=== PATIENT | female | born 1960 | race Caucasian/White ===

== ENCOUNTER 2020-11-17 20:32 | Emergency (ER) | payer OTHER, SELFPAY ==
[2020-11-17] VITALS (9 sets, daily range): BP systolic 139–154; BP diastolic 72–109; PULSE 67–126; RESP 16–17; TEMP 37–37.6; O2SAT 95–99
--- NOTE | ~2020-11-17 | CT_ITS ---
EXAMINATION: CT abdomen pelvis w con DATE: 11/17/2020 22:12 INDICATION: Abdominal pain TECHNIQUE: Computed tomography (CT) of the abdomen and pelvis was performed with 100 mL Omnipaque-350 intravenous contrast. Automated exposure control and iterative reconstruction technique were employe d. The dose-length product was 704.79 mGy-cm. COMPARISON: None FINDINGS: Dependent and discoid atelectasis in the bilateral lower lobes. Heart size is normal. No pericardial or pleural effusion. Very small sliding-type hiatal hernia. Couple subcentimeter low-attenuation hepa tic cysts. Focal adenomyomatosis at the tip of the gallbladder fundus. Spleen, pancreas, bilateral ad renal glands and kidneys are normal. Moderate diverticulosis with wall thickening in the sigmoid colo n with prominent inflammatory stranding surrounding a diverticulum at the distal sigmoid colon consis tent with diverticulitis. There is a second focus of diverticulitis with additional inflammatory stra nding with only minimal associated wall thickening surrounding a diverticulum at the proximal sigmoid colon. Small bowel is normal. The appendix is not visualized. No pericecal inflammatory change to ye ggest acute appendicitis. Bladder, anteverted uterus and bilateral adnexa are unremarkable. Trace warner unt of likely reactive free fluid in the pelvis. No abscess or free intraperineal gas. Small fat-cont aining umbilical hernia. Mild lumbar dextrocurvature with moderate spondylosis. IMPRESSION: 1. Radiographically uncomplicated sigmoid diverticulitis at 2 locations, with more mild inflammatory change at the proximal sigmoid colon and 4 severe inflammatory change at the distal sigmoid colon. Reviewed, dictated and finalized at location A. IMPRESSION: 1. Radiographically uncomplicated sigmoid diverticulitis at 2 locations, with m ore mild inflammatory change at the proximal sigmoid colon and 4 severe inflamm atory change at the distal sigmoid colon.
--- NOTE | 2020-11-17 21:02 | ED.ABDPAIN ---
HPI - Abdominal Pain General Chief Complaint: Abdominal Pain Stated Complaint: fever and abdmonial pain Time Seen by Provider: 11/17/20 20:56 Source: RN notes reviewed History of Present Illness HPI narrative: Patient presents to emergency department from home for abdominal pain. Patient states that starting 3 days ago she was having fevers up to 101 ?F she states that she been having some constipation and took Dulcolax on Wednesday and is had numerous episodes of diarrhea since then with abdominal pain diffusely throughout her abdomen abdominal pain is described as cramping she denies any nausea or vomiting she denies any chest pain shortness of breath or any other symptoms states she last took ibuprofen 3 hours ago Related Data Allergies Allergy/AdvReac Type Severity Reaction Status Date / Time morphine Allergy Mild Nausea Verified 09/09/20 15:03 bacitracin Allergy Unknown Unknown Verified 09/09/20 15:03 polymyxin B Allergy Unknown unknown Verified 09/09/20 15:03 Review of Systems Review of Systems: Gen.: Denies fevers or chills ENT: Denies congestion Respiratory: Denies shortness of breath or cough CV: Denies chest pain or palpitations GI: See HPI denies burning, urgency, frequency or hematuria Musculoskeletal: Denies back pain or muscle pain Neuro: Denies numbness, tingling, weakness or focal weakness Skin: Denies rash Except as documented, all other systems reviewed and negative [facility] Past Medical History Medical History Family history of colon cancer HLD (hyperlipidemia) HTN (hypertension) IFG (impaired fasting glucose) Social History Social History Social History: Smoking status: Never smoker Second hand tobacco smoke exposure: No Alcohol intake: current Drinks per week: 4 Substance use: never Substance use type: does not use Gender identity (if verbalized by the patient): Female Sexual Orientation (if Verbalized by the Patient): Straight or Heterosexual Exam Narrative: APPEARANCE: No acute distress, nontoxic, resting in bed HEENT: Normocephalic, atraumatic, OMM RESPIRATORY: No respiratory distress, clear to auscultation bilaterally with no rhonchi wheezing or rales CARDIOVASCULAR: Tachycardic and regular s murmur ABDOMINAL: Soft nondistended diffusely tender to palpation no rebound or guarding MUSCULOSKELETAl: Moves all extremities. No clubbing, cyanosis or edema. NEURO: Awake and alert. Following commands, speech normal, no focal deficits SKIN:: Warm, dry. Normal Color PSYCHIATRIC: Normal affect/mood Course Course Emergency Course: Called discussed with Dr. Kruger presentation work-up agrees with plan for discharge request patient start on Cipro and Flagyl Patient states that they are feeling much better at this time. States abdominal pain has improved.. Repeat abdominal exam shows the patient's abdomen to be soft with no surgical M present discussed with patient results of workup and diagnosis. Discussed need for follow-up with primary care physician, reasons to return to the emergency department in proper use of medication. Patient understands and agrees to current treatment plan Vital Signs Vital signs: Vital Signs Temperature 99.7 F H 11/17/20 20:42 Pulse Rate 126 H 11/17/20 20:42 Respiratory Rate 17 11/17/20 20:42 Blood Pressure 154/109 H 11/17/20 20:42 Pulse Oximetry 99 11/17/20 20:42 Temperature 99.7 F H 11/17/20 20:42 Pulse Rate 67 11/17/20 21:31 Respiratory Rate 16 11/17/20 21:31 Blood Pressure 139/101 H 11/17/20 21:31 Pulse Oximetry 95 11/17/20 21:54 MDM - Abdominal Pain Lab Data Result diagrams: 11/17/20 21:04 11/17/20 21:04 Labs: Lab Results 11/17/20 11/17/20 11/17/20 Range/Units 21:03 21:04 21:04 WBC 11.1 H (4.5-10.0) K/mm3 RBC 4.47 (4.2-5.4) M/mm3 Hgb 14.3 (12.0
[2020-11-17 21:14] LABS: Basophils Percent Auto 0.4 % (0.2-1.2); Eosinophils Absolute Auto 0.2 K/mm3 (0-0.3); Eosinophils Percent Auto 1.4 % (0-4.4); Hematocrit 41.5 % (37.0-47.0); Hemoglobin 14.3 g/dL (12.0-15.0); Immature Granulocyte Absolute 0.03 K/mm3 (0.00-0.031); Immature Granulocyte Percent A 0.3 % (0-0.5); Lymphocytes Absolute Auto 1.71 K/mm3 (0.9-3.2); Lymphocytes Percent Auto 15.4 % (18.3-44.2); Mean Corpuscular HGB Conc 34.5 g/dl (32-36); Mean Corpuscular Volume 92.8 fl (80-100); Mean Platelet Volume 9.1 fl (7.4-10.4); Monocytes Absolute Auto 0.8 K/mm3 (0.1-0.6); Monocytes Percent Auto 6.9 % (2.6-8.5); Neutrophils Absolute Auto 8.4 K/mm3 (1.3-6.7); Neutrophils Percent Auto 75.6 % (45.5-73.1); Platelet Count Result 345 k/mm3 (150-375); Red Blood Count 4.47 M/mm3 (4.2-5.4); Red Cell Distribution Width 12.5 % (11.5-14.5); White Blood Count 11.1 K/mm3 (4.5-10.0)
--- NOTE | 2020-11-17 21:16 | PC.NURSE ---
pt c/o abd pain generalized. reports took dulcolax for constipation 2 days ago and c/o pain to abd c palpation. iv started and labs sent. on monitor.
[2020-11-17 21:18] LABS: Add Urine Microscopic? YES; Appearance Urine Clear (Clear); Bilirubin Urine Negative (Negative); Blood Urine 1+ (Negative); Color Urine Yellow (Yellow); Glucose Urine UA Negative (Negative); Ketones Urine Trace mg/dL (Negative); Leukocyte Esterase Ur Negative LEU/UL (Negative); Mucus Urine Rare /lpf; Nitrate Urine Negative (Negative); Protein Urine Negative (Negative); Specific Grav Ur 1.011 (1.001-1.035); Squamous Epithelial Cell Urine Rare /hpf (Few); Urobilinogen Urine Negative mg/dL (<2.0); WBC Urine 0-3 /hpf
[2020-11-17 21:23] LABS: Lactic Acid Reflex 0.7 mmol/L (0.7-2.1)
[2020-11-17] MEDS: SODIUM CHLORIDE 0.9% IV 1,000 ML 999 ML IV CONT (21:23)
[2020-11-17 21:24] LABS: Alanine Aminotransferase 40 U/L (4-35); Albumin Level 4.5 g/dL (3.5-5.1); Alkaline Phosphatase 97 U/L (38-126); Anion Gap 12 mmol/L (8-16); Aspartate Amino Transferase 27 U/L (14-36); Bilirubin,Total 0.8 mg/dL (0.2-1.3); Blood Urea Nitrogen 11 mg/dL (7-17); Calcium 9.4 mg/dL (8.4-10.2); Carbon Dioxide 25 mmol/L (22-30); Chloride 101 mmol/L (98-107); Estimated CRCL calculation 74 ml/min; Estimated Glomerular Filt Rate > 60; Glucose 109 mg/dL (65-110); Lipase 54 U/L (23-300); Potassium 3.8 mmol/L (3.4-5.0); Sodium 138 mmol/L (137-145)
[2020-11-17] MEDS: CIPROFLOXACIN 500 MG TAB PO (23:50)
[2020-11-17] MEDS: metroNIDAZOLE 250 MG TABLET 500 MG PO (23:50)
== END 2020-11-18 00:06 | disposition home or self-care (01) ==
PROVIDERS: Emergency Provider Emergency Medicine; PCP Family Medicine
DX: K57.92 Diverticulitis of intestine, part unspecified, without perforation or abscess without bleeding (principal); E78.5 Hyperlipidemia, unspecified; I10 Essential (primary) hypertension; R73.01 Impaired fasting glucose
CPT/HCPCS: 36415; 74177; 80053; 81001; 81025; 83605; 83690; 85025; 87040; 96365; 99284; A9270; J0131; J7030; Q9967

== ENCOUNTER 2020-12-30 02:33 | Day surgery (SDC) | payer OTHER, SELFPAY ==
[2020-12-16 12:28] VITALS: BMI 32.6
[2020-12-30 06:21] VITALS: BMI 34.4
[2020-12-30] MEDS: LACTATED RINGERS 1,000 ML 150 ML IV CONT (06:35)
--- NOTE | 2020-12-30 07:11 | WPDANESEPPF ---
Anes - Initial Pre Proc Eval Procedure: Operation Date: 12/30/20 07:30 Proposed Procedures p Colonoscopy - Wilson Espitia MD Date/Time: 12/30/20 07:11 Surgeon: Wilson Espitia MD Pre Op Diagnosis: diverticulitis Patient Data Age: 60 Gender: F Height: 1.57 m Weight: 85.5 kg Allergies Allergy/AdvReac Type Severity Reaction Status Date / Time morphine Allergy Mild Nausea Verified 12/30/20 06:19 bacitracin Allergy Unknown Unknown Verified 12/30/20 06:19 Home Medications Medication Instructions Recorded Confirmed Type ibuprofen 600 mg PO Q6H PRN 12/16/20 12/30/20 History melatonin 3 mg PO HS PRN 12/16/20 12/30/20 History Patient hx anesthesia problems: none Family hx anesthesia problems: none Results Review: All pre-operative results and documents have been reviewed as part of the pre-operative evaluation. [facility], LAT[facility] Past Medical History Medical History Family history of colon cancer HLD (hyperlipidemia) HTN (hypertension) IFG (impaired fasting glucose) Social History Social History Social History: Years smoked: 4 Smoking status: Former smoker Tobacco type: cigarettes Second hand tobacco smoke exposure: No Alcohol intake: current Drinks per week: 4 Substance use: never Substance use type: does not use Living arrangements: with family Gender identity (if verbalized by the patient): Female Sexual Orientation (if Verbalized by the Patient): Straight or Heterosexual Spiritual care concerns: No Anes - Eval Final PreProcedure Day of Procedure 12/30/20 07:11 Patient weight: obese Heart: regular rate and rhythm Lungs: clear to auscultation Airway: Mallampati scale Neurological: alert and oriented Last oral intake: >/= 8 hours ASA classification: II Emergent: no Anesthetic plan: proceed Anesthesia type and monitoring: general and standard monitoring Results Review: All pre-operative results and documents have been reviewed as part of the pre-operative evaluation. Informed Consent: The patient's anesthetic plan and its attendant risks and benefits were discussed with the patient/family/POA. Questions were solicited and answers provided to the satisfaction of the patient/family/POA.
--- NOTE | 2020-12-30 07:25 | PM.HPGS ---
History of Present Illness History of Present Illness Consent: Risks, benefits, and alternatives have been discussed and questions answered. Patient agrees to proceed with procedure. Chief complaint: diverticulitis Narrative: April Herrera is a 60 year old female here for screening colonoscopy, mother had colonoscopy and she also had diverticulitis already treated Review of Systems Constitutional: Constitutional: Denies headache(s) and Denies weakness Eyes: Eyes: Denies blurry vision ENT: Reports Normal hearing present, Denies headache(s) and Denies neck pain Cardiovascular: Cardiovascular: Denies chest pain and Denies dyspnea Respiratory: Respiratory: Denies dyspnea Gastrointestinal: Gastrointestinal: Reports no additional gastrointestinal complaints Genitourinary: Genitourinary: Denies dysuria Musculoskeletal: Musculoskeletal: Denies neck pain Integumentary/Breasts: Skin/Breast: Denies dry skin Neurologic: Reports Normal hearing present, Denies headache(s) and Denies weakness Psychiatric: Psychiatric: Denies anxiety Endocrine: Endocrine: Denies change in body appearance Hematologic/Lymphatic: Hematologic/Lymphatic: Denies easy bleeding Allergic/Immunologic: Allergic/Immunologic: Denies urticaria PMF Past Medical History Medical History Family history of colon cancer HLD (hyperlipidemia) HTN (hypertension) IFG (impaired fasting glucose) Social History Social History Social History: Years smoked: 4 Smoking status: Former smoker Tobacco type: cigarettes Second hand tobacco smoke exposure: No Alcohol intake: current Drinks per week: 4 Substance use: never Substance use type: does not use Living arrangements: with family Gender identity (if verbalized by the patient): Female Sexual Orientation (if Verbalized by the Patient): Straight or Heterosexual Spiritual care concerns: No Meds Home Medications and Allergies Home Medications Medication Instructions Recorded Confirmed Type ibuprofen 600 mg PO Q6H PRN 12/16/20 12/30/20 History melatonin 3 mg PO HS PRN 12/16/20 12/30/20 History Allergies Allergy/AdvReac Type Severity Reaction Status Date / Time morphine Allergy Mild Nausea Verified 12/30/20 06:19 bacitracin Allergy Unknown Unknown Verified 12/30/20 06:19 Exam Const: General: comfortable and no acute distress HENMT: General nose exam: Normal nares present Eyes: General: appearance normal, both eyes and all related structures Neck: Neck: no JVD Resp: Auscultation: clear to auscultation bilaterally Cardio: Rate: regular rate Rhythm: regular rhythm GI: Inspection: non-distended GI Palp: Yes Soft to palpation Skin: General skin exam: normal color Neuro: General: gait normal Speech: normal speech Extrem: General: normal to inspection Psych: Mental Status: mental status grossly normal Assessment and Plan Assessment and plan (1) Family history of colon cancer: Code(s): Z80.0 - Family history of malignant neoplasm of digestive organs Status: Acute Assessment and Plan: colonoscopy
[2020-12-30 07:51] VITALS: BP 82/42; PULSE 78; RESP 19; O2SAT 100
[2020-12-30 08:01] VITALS: BP 91/59; PULSE 82; RESP 22; O2SAT 97
[2020-12-30 08:11] VITALS: BP 111/68; PULSE 67; RESP 14; O2SAT 100
== END 2020-12-30 08:28 | disposition home or self-care (01) ==
PROVIDERS: PCP Family Medicine; Visit Provider Internal Medicine Gastroenterology
PROC: 0DJD8ZZ Inspection of Lower Intestinal Tract, Via Natural or Artificial Opening Endoscopic (ICD-10-PCS; CPT 45378; principal; 2020-12-30 07:30)
DX: Z12.11 Encounter for screening for malignant neoplasm of colon (principal); D12.4 Benign neoplasm of descending colon; K57.30 Diverticulosis of large intestine without perforation or abscess without bleeding; K64.8 Other hemorrhoids; I10 Essential (primary) hypertension; E78.5 Hyperlipidemia, unspecified; Z80.0 Family history of malignant neoplasm of digestive organs; Z87.891 Personal history of nicotine dependence; E66.9 Obesity, unspecified; Z68.34 Body mass index [BMI] 34.0-34.9, adult
CPT/HCPCS: 45380; 88305; J2001; J2704; J7120

== ENCOUNTER → 2021-01-31 03:38 | Outpatient (CLI) | payer OTHER, SELFPAY ==
[2021-01-31 18:11] LABS: SARS-CoV-2 RNA PCR Negative
== END ==
PROVIDERS: PCP Family Medicine; Visit Provider Nurse Practitioner Family
DX: R05.9 Cough, unspecified (principal); R51.9 Headache, unspecified; Z20.822 Contact with and (suspected) exposure to COVID-19
CPT/HCPCS: C9803; U0003; U0005

== ENCOUNTER 2022-08-03 12:31 | Emergency (ER) | payer OTHER, SELFPAY ==
--- NOTE | ~2022-08-03 | CT_ITS ---
Non-contrast Head CT History: Headache, visual changes Technique: Axial non-contrast imaging of the brain was performed. Dose reduction technique was used on this scan by utilizing automated exposure control and iterative reconstruction technique. The dose -length product (DLP) was 605.33 mGy-cm. Findings: There is no evidence of intracranial hemorrhage, mass lesion, or acute infarct. Brain par enchyma appears normal. The ventricles and subarachnoid spaces are normal in size. The calvarium ap pears normal. The visualized paranasal sinuses and mastoid air cells are clear. Impression: No significant abnormality seen. Reviewed, dictated and finalized at location . Impression: No significant abnormality seen.
--- NOTE | ~2022-08-03 | XR_ITS ---
EXAMINATION: XR chest 1V portable 08/03/2022 13:12 INDICATION: Hypertension. History of smoking. PROCEDURE: AP portable chest COMPARISON: 03/10/2005 FINDINGS: The lungs are clear. The cardiomediastinal silhouette is within normal limits. There are no pleural effusions. There is no pneumothorax suspected. IMPRESSION: 1: NO ACUTE CARDIOPULMONARY DISEASE. Reviewed, dictated and finalized at location B.
[2022-08-03 12:35] VITALS: BP 150/86; PULSE 78; RESP 16; TEMP 36.5; O2SAT 99
--- NOTE | 2022-08-03 12:41 | ECG_ITS ---
Measurements Intervals [place] Rate: 86 P: 33 [place]: 169 QRS: 45 QRSD: 88 T: 13 QT: 370 QTc: 445 Interpretive Statements SINUS RHYTHM MINIMAL Q WAVES- INFERIOR LEADS BORDERLINE ST-T WAVE ABNORMALITY- ANT/INF LEADS BASELINE ARTIFACT- I, III, AVR, AVL BORDERLINE ECG NO PREVIOUS ECG AVAILABLE FOR COMPARISON Electronically Signed On 08-03-2022 13:39:05 CDT by Julian Garcia D.O.
[2022-08-03 13:00] VITALS: PULSE 92; RESP 23; O2SAT 96
[2022-08-03 13:15] VITALS: PULSE 90; RESP 15; O2SAT 99
--- NOTE | 2022-08-03 13:18 | ED.GENADULT ---
HPI - General Adult General Chief complaint: Dizziness Stated complaint: dizziness, blurry vision, elevated BP Time Seen by Provider: 08/03/22 12:48 History of Present Illness HPI narrative: Patient is a 61-year-old female who presents ER with dizziness. 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 She gets dizziness is associated with nausea that is worse with turning of her head especially to the left side. She reports over the last 2 weeks she has had sinus congestion. She has had chronic tinnitus in her ears with increased recently as well. No fevers or chills or sweats. No chest pain or chest pressure. No focal weakness or numbness to an arm or leg. No slurred speech. Symptoms are better if she sits still. Related Data Home Medications Medication Instructions Recorded Confirmed ibuprofen 600 mg tablet 600 mg PO Q6H PRN Sleep 12/16/20 07/28/22 melatonin 3 mg tablet 3 mg PO HS PRN Headache 12/16/20 07/28/22 Allergies Allergy/AdvReac Type Severity Reaction Status Date / Time morphine Allergy Mild Nausea Verified 07/28/22 07:15 bacitracin Allergy Unknown Unknown Verified 07/28/22 07:15 Review of Systems Review of Systems: All systems reviewed & are unremarkable except as noted in HPI and below Constitutional: Constitutional: Denies chills, Denies fatigue and Denies fever(s) ENT: Reports dizziness, Reports nasal congestion and Denies sore throat Comments: Positive tenderness bilaterally Cardiovascular: Cardiovascular: Denies chest pain and Denies radiating jaw, neck or arm pain Respiratory: Respiratory: Denies cough, Denies dyspnea and Denies wheezing Gastrointestinal: Gastrointestinal: Denies abdominal pain, Reports nausea and Denies vomiting Neurologic: Reports vertigo, Denies headache(s), Denies focal weakness and Denies numbness [facility] Past Medical History Medical History Family history of colon cancer HLD (hyperlipidemia) HTN (hypertension) IFG (impaired fasting glucose) Social History Social History Social History: Years smoked: 4 Smoking status: Former smoker Tobacco type: cigarettes Second hand tobacco smoke exposure: No Alcohol intake: current Drinks per week: 4 Substance use: never Substance use type: does not use Living arrangements: with family Occupation/Education: occupation Gender identity (if verbalized by the patient): Female Sexual Orientation (if Verbalized by the Patient): Straight or Heterosexual Spiritual care concerns: No Exam Narrative: GENERAL: Well-appearing, well-nourished, and in no acute distress. HEAD: Normocephalic, atraumatic. EYES: PERRL and EOMI. mild left gaze nystagmus. ENT: Mucous membranes moist. TMs pearly white and non-bulging without air-fluid levels behind them. NECK: Supple. CHEST: Clear to auscultation. No respiratory distress. HEART: Regular rate and rhythm. Normal peripheral pulses. ABDOMEN: Soft, nontender, nondistended. EXTREMITIES: Normal range of motion. No edema. SKIN: Warm, dry, no rash. NEURO: Alert and oriented x3. Reproducible dizziness with turning head to the left. No upper or lower extremity drift. Normal [id number] testing and finger-nose testing PSYCH: Normal mood and affect. Course Course Emergency Course: Patient still has some mild dizziness when turning her head but reports it is improved with meclizine. She has been ambulating with a steady gait while in the ER. Discussed imaging and lab results. Feels comfortable with discharge. Vital Signs Vital signs: Vital Signs Temperature 97.7 F 08/03/22 12:35 Pulse Rate 78 08/03/22 12:35 Respiratory Rate 16 08/03/22 12:35 Blood Pressure 150/86 H 08/03/22 12:35 Pulse Oximetry 99 08/03/22 12:35 Temperature 97.7 F
[2022-08-03 13:30] VITALS: PULSE 91; RESP 16; O2SAT 99
[2022-08-03 13:33] LABS: Alanine Aminotransferase 77 U/L (6-35); Albumin Level 4.8 g/dL (3.5-5.1); Alkaline Phosphatase 82 U/L (38-126); Anion Gap 14 mmol/L (8-16); Aspartate Amino Transferase 38 U/L (14-36); Bilirubin,Total 0.8 mg/dL (0.2-1.3); Blood Urea Nitrogen 19 mg/dL (7-17); Calcium 9.2 mg/dL (8.4-10.2); Carbon Dioxide 22 mmol/L (22-30); Chloride 101 mmol/L (98-107); Estimated CRCL calculation 89 ml/min; Estimated Glomerular Filt Rate > 60; Glucose 113 mg/dL (65-110); Potassium 4.1 mmol/L (3.4-5.0); Sodium 137 mmol/L (137-145)
[2022-08-03 13:43] LABS: Basophils Absolute Auto 0.1 K/mm3 (0.0-0.1); Basophils Percent Auto 0.6 % (0.2-1.2); Eosinophils Absolute Auto 0.1 K/mm3 (0-0.3); Hematocrit 45.2 % (37.0-47.0); Hemoglobin 15.4 g/dL (12.0-15.0); Immature Granulocyte Absolute 0.03 K/mm3 (0.00-0.031); Immature Granulocyte Percent A 0.3 % (0-0.5); Immature Platelet Fraction Pct 1.6 % (0.9-11.2); Lymphocytes Absolute Auto 2.41 K/mm3 (0.9-3.2); Lymphocytes Percent Auto 27.7 % (18.3-44.2); Mean Corpuscular HGB Conc 34.1 g/dl (32-36); Mean Corpuscular Hemoglobin 32.5 pg (26-34); Mean Corpuscular Volume 95.4 fl (80-100); Mean Platelet Volume 9.4 fl (7.4-10.4); Monocytes Absolute Auto 0.7 K/mm3 (0.1-0.6); Monocytes Percent Auto 7.5 % (2.6-8.5); Neutrophils Absolute Auto 5.5 K/mm3 (1.3-6.7); Neutrophils Percent Auto 62.9 % (45.5-73.1); Platelet Count Result 263 k/mm3 (150-375); Red Blood Count 4.74 M/mm3 (4.2-5.4); Red Cell Distribution Width 12.2 % (11.5-14.5); White Blood Count 8.7 K/mm3 (4.5-10.0)
[2022-08-03 13:45] VITALS: PULSE 84; RESP 25; O2SAT 95
[2022-08-03 13:45] LABS: Glucose Point of Care 112 mg/dl (65-105)
[2022-08-03 13:45] LABS: Troponin I < 0.012 ng/mL (0.000-0.034)
[2022-08-03] MEDS: SODIUM CHLORIDE 0.9% IV 1,000 ML 999 ML IV CONT (14:02)
[2022-08-03] MEDS: ONDANSETRON INJ 4 MG/2 ML VIAL IV PUSH (14:02)
[2022-08-03] MEDS: MECLIZINE HCL 25 MG TABLET PO (14:03)
[2022-08-03 14:04] LABS: INR 0.9; Prothrombin Time 12.6 Seconds (11.1-14.7)
[2022-08-03 14:05] LABS: Partial Thromboplastin Time 25.2 SECONDS (22.3-36.8)
[2022-08-03 15:01] VITALS: BP 146/90; PULSE 77; RESP 25; O2SAT 97
== END 2022-08-03 15:16 | disposition home or self-care (01) ==
PROVIDERS: Emergency Provider Emergency Medicine; PCP Family Medicine
DX: R42 Dizziness and giddiness (principal); I10 Essential (primary) hypertension; E78.5 Hyperlipidemia, unspecified
CPT/HCPCS: 36415; 70450; 71045; 80053; 82948; 84484; 85025; 85055; 85610; 85730; 93005; 96374; 99284; A9270; J2405; J7030

== ENCOUNTER 2022-10-01 09:52 | Outpatient (CLI) | payer OTHER, SELFPAY ==
--- NOTE | 2022-10-05 16:36 | WPDPFTINT ---
PFT Procedure Performed PFT Procedure Performed Spirometry with Pre/Post Bronchodilator Plethysmography (Lung Vol) Diffusing Cap (DLCO) PFT Interpretation DOS: 10/01/2022 REQUESTING: José Luis Kruger MD REASON FOR TESTING: Dyspnea PULMONARY FUNCTION TESTS Results are reliable and reproducible. Spirometry: Pre bronchodilator FEV1 is 1.77 L, 78%, low end of normal. Pre bronchodilator FVC is 2.45 L, 85%, normal. FEV1/FVC is 72%, normal. After bronchodilator there is a huge increase in flows, FEV1 increases to 114% of predicted, 2.59 L, 46% increase. The FVC increases to 3.46 L, 121% increase, a 41% improvement. The ratio is 75%, normal. Lung volumes: Total lung capacity 3.42 L, 72%, below normal consistent with a restrictive pattern. Residual volume is 0.96 L, 50% of predicted, below normal. RV/TLC is 28%, below normal. Diffusion: DLCO is 15.8, 77%, normal. DLCO/VA is 3.74, 83%, normal. Flow volume loop: not reproducible IMPRESSION: Mild restrictive pattern with borderline obstruction, normal diffusion, robust response to bronchodilator. No old studies to compare. Jamaica Guzman MD
== END 2022-10-01 09:53 | disposition home or self-care (01) ==
PROVIDERS: PCP Family Medicine; Visit Provider Family Medicine
DX: R06.00 Dyspnea, unspecified (principal); R94.2 Abnormal results of pulmonary function studies
CPT/HCPCS: 94060; 94726; 94729

== ENCOUNTER → 2023-03-31 15:46 | Outpatient (CLI) | payer OTHER, SELFPAY ==
--- NOTE | ~2023-03-31 | XR_ITS ---
EXAM: XR lumbar spine 2-3V DATE: 03/31/2023 17:09 HISTORY: Low back pain . COMPARISON: None available. FINDINGS: 5 nonrib-bearing lumbar-type vertebral bodies. Pedicles intact. Mild lumbar scoliosis. Tra ce retrolisthesis at L1-2. 3 mm retrolisthesis at L2-3. 4 mm anterolisthesis at L4-5. Multilevel mild disc space narrowing and marginal osteophytosis. Moderate facet sclerosis and hypertrophy in the low er lumbar spine. No fracture or dislocation. IMPRESSION: Multilevel grade 1 listheses. Multilevel mild degenerative disc disease. Moderate lower l umbar facet arthropathy. Reviewed, dictated and finalized at location K. IZER [employer] IMPRESSION: Multilevel grade 1 listheses. Multilevel mild degenerative disc dis ease. Moderate lower lumbar facet arthropathy.
--- NOTE | ~2023-03-31 | XR_ITS ---
EXAMINATION: XR cervical spine 4-5V DATE: 03/31/2023 17:11 INDICATION: Neck pain. TECHNIQUE: 6 views of cervical spine including standing views were obtained. COMPARISON: None. FINDINGS: There is 2 mm anterolisthesis of C4 on C5. There is 4 degrees levocurvature of cervical spi ne. Vertebral body heights are normal. There is moderately decreased disc height from C4-C5 through C 6-C7. There is multilevel uncovertebral joint osteoarthritis, severe on the right at C4-C5 and C5-C6 and severe bilaterally at C6-C7. There is multilevel mild to moderate facet joint osteoarthritis. On the right, there is mild neural foraminal stenosis from C3-C4 through C6-C7. On the left, there is mi ld neural foraminal stenosis at C3-C4 and C4-C5, moderate neural foraminal stenosis at C5-C6, and sev ere neural foraminal stenosis at C6-C7. There is mild central canal stenosis at C4-C5, C5-C6, and C6- C7. No prevertebral soft tissue swelling. IMPRESSION: 1. Moderate cervical spondylosis. Reviewed, dictated and finalized at location A. CANDY
--- NOTE | ~2023-03-31 | XR_ITS ---
EXAM: XR shoulder RT min 2V DATE: 03/31/2023 17:10 HISTORY: M25.511 - Pain in right shoulder . COMPARISON: X-ray left shoulder same date. FINDINGS: Decreased mineralization. No fracture or dislocation. No lytic or blastic lesion. Mild deg enerative change at the AC joint. No erosion or periosteal change. Soft tissues within normal limits. IMPRESSION: Mild AC joint osteoarthritis. Reviewed, dictated and finalized at location K. MECHANIC
--- NOTE | ~2023-03-31 | XR_ITS ---
EXAM: XR hip BI 2V w AP pelvis DATE: 03/31/2023 17:11 HISTORY: Low back pain . COMPARISON: None available. FINDINGS: Normal mineralization. No fracture or dislocation. No lytic or blastic lesion. Lumbar dege nerative disc disease. Mild bilateral hip degenerative change. Mild scattered pelvic enthesopathy. No erosion or periosteal change. Soft tissues within normal limits. IMPRESSION: Mild bilateral hip osteoarthritic arthritis, slightly worse on the left. Reviewed, dictated and finalized at location K. ET OFFICER
--- NOTE | ~2023-03-31 | XR_ITS ---
EXAM: XR shoulder LT min 2V DATE: 03/31/2023 17:10 HISTORY: M25.512 - Pain in left shoulder . COMPARISON: None available. FINDINGS: Decreased mineralization. No fracture or dislocation. No lytic or blastic lesion. Degenera tive changes, mild at the AC joint and moderate at the glenohumeral joint. No erosion or periosteal c hange. Soft tissues within normal limits. IMPRESSION: Moderate glenohumeral and mild AC joint osteoarthritis. Reviewed, dictated and finalized at location K. SURE TESTER
== END ==
PROVIDERS: PCP Physician Assistant; Visit Provider Physician Assistant
DX: M54.2 Cervicalgia (principal); M43.02 Spondylolysis, cervical region; M16.0 Bilateral primary osteoarthritis of hip; M51.36 Other intervertebral disc degeneration, lumbar region; M47.896 Other spondylosis, lumbar region; M19.012 Primary osteoarthritis, left shoulder; M19.011 Primary osteoarthritis, right shoulder
CPT/HCPCS: 72050; 72100; 73030; 73521

== ENCOUNTER 2023-05-12 07:58 | Outpatient (CLI) | payer OTHER, SELFPAY ==
--- NOTE | ~2023-05-12 | MR_ITS ---
MRI of the cervical spine Clinical History: Cervicalgia Technique: Axial T2-weighted and gradient images, and sagittal T1-weighted, T2-weighted, and STIR khoi ges were acquired. Findings: There is no fracture or subluxation of the cervical spine. Vertebral bodies maintain normal height and alignment At C2-C3, there is no disc bulge or herniation. No spinal canal stenosis, cord compression, or neural foraminal narrowing. At C3-C4, there is minimal disc osteophyte convex. There is probable mild bilateral neural foraminal narrowing. No canal stenosis or cord compression. At C4-C5, there is disc osteophyte complex with mild canal stenosis and mild flattening the ventral c ord. There is bilateral neural foraminal narrowing, right worse than left. At C5-C6, there is disc osteophyte complex, with mild canal stenosis but no roscoe cord compression. T here is bilateral neural foraminal narrowing. At C6-C7, there is disc osteophyte complex with mild canal stenosis but no roscoe cord compression. Th ere is left neural foraminal narrowing. Right neural foramen probably better preserved. No abnormal signal seen in the spinal cord. Paravertebral soft tissues are unremarkable.. No bone mar row signal abnormality seen. Impression: Moderate degenerative spondylosis, as above. Reviewed, dictated and finalized at location . CLE RACER Impression: Moderate degenerative spondylosis, as above.
== END 2023-05-12 07:59 | disposition home or self-care (01) ==
PROVIDERS: PCP Family Medicine; Visit Provider Physician Assistant
DX: M43.02 Spondylolysis, cervical region (principal); M54.2 Cervicalgia
CPT/HCPCS: 72141

== ENCOUNTER 2023-05-16 20:16 | Emergency (ER) | payer OTHER, SELFPAY ==
--- NOTE | ~2023-05-16 | XR_ITS ---
Portable chest x-ray Comparison: 08/03/2022 Clinical History: Fever Findings: Minimal haziness left lung base noted. Right lung clear. Cardiomediastinal silhouette is stable. Bones and soft tissues are unremarkable. Impression: Probable mild left basilar atelectasis versus possibly pneumonia. Correlate clinically. Reviewed, dictated and finalized at [facility]. TENDER Impression: Probable mild left basilar atelectasis versus possibly pneumonia. Correlate cli nically.
[2023-05-16 20:24] VITALS: BP 131/93; PULSE 123; RESP 20; TEMP 37.1; O2SAT 92
[2023-05-16 21:16] LABS: Influenza A QL RT-PCR Negative (Negative); Influenza B QL RT-PCR Negative (Negative); RSV RNA, RT-PCR Negative (Negative); SARS-CoV-2 RNA PCR Negative (Negative)
[2023-05-16 22:26] VITALS: BP 122/89; PULSE 90; RESP 24; TEMP 37.1; O2SAT 92
--- NOTE | 2023-05-16 23:22 | ECG_ITS ---
Measurements Intervals [place] Rate: 93 P: 42 [place]: 156 QRS: 63 QRSD: 97 T: 48 QT: 370 QTc: 462 Interpretive Statements SINUS RHYTHM NORMAL ECG COMPARED TO ECG 08/03/2022 13:37:10 NO SIGNIFICANT CHANGES Electronically Signed On 05-17-2023 7:25:38 PRESS SETTER by Francis Plaza M.D.
--- NOTE | 2023-05-16 23:22 | ED.GENADULT ---
HPI - General Adult General Chief complaint: Fever Stated complaint: Fever, 102.1, achy and pains, feels dehydrated Time Seen by Provider: 05/16/23 22:11 History of Present Illness HPI narrative: 62-year-old female presenting with flu-like symptoms for 2 days. Fevers as high as 102.1 feeling feelings of body aches, lightheadedness nausea. No vomiting diarrhea. 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 Related Data Allergies Allergy/AdvReac Type Severity Reaction Status Date / Time morphine Allergy Mild Nausea Verified 05/16/23 20:28 bacitracin Allergy Unknown Unknown Verified 05/16/23 20:28 [facility], [facility] Past Medical History Medical History Family history of colon cancer HLD (hyperlipidemia) HTN (hypertension) IFG (impaired fasting glucose) Vertigo Social History Social History Social History: Caffeine-tea,soda Years smoked: 4 Smoking status: Former smoker Tobacco type: cigarettes Second hand tobacco smoke exposure: No Alcohol intake: current Drinks per week: 4 Substance use: never Substance use type: does not use Lack of Transportation: No Lack of Food: Never True Current Housing: I Have Housing Concerned About Future Housing: No Difficulty Paying Gas/Electric Bills: No Difficulty Paying for Meds: No Currently Unemployed: No Education: High School Diploma/GED Difficulty w/ Childcare or Family Care: No Living arrangements: with family Occupation/Education: occupation Gender identity (if verbalized by the patient): Female Sexual Orientation (if Verbalized by the Patient): Straight or Heterosexual Spiritual care concerns: No Exam Narrative: APPEARANCE: No apparent distress. Head: atraumatic. EYES: EOMI, NOSE: Atraumatic NECK: Trachea midline RESPIRATORY: No increased rate of breathing, scattered expiratory wheezing CARDIOVASCULAR: tachycardic, no peripheral ABDOMINAL: Non-distended MUSCULOSKELETAl: No obvious deformities NEURO: Alert. Moving 4/4 extremities SKIN:: Warm, dry. Normal color PSYCHIATRIC: Normal affect Course Vital Signs Vital signs: Vital Signs Temperature 98.7 F 05/16/23 20:24 Pulse Rate 123 H 05/16/23 20:24 Respiratory Rate 20 05/16/23 20:24 Blood Pressure 131/93 H 05/16/23 20:24 Pulse Oximetry 92 02/25/24 20:24 Oxygen Delivery Room Air 05/16/23 20:24 Temperature 98.7 F 05/16/23 22:26 Pulse Rate 97 05/17/23 01:38 Respiratory Rate 20 05/17/23 01:38 Blood Pressure 123/75 05/17/23 00:19 Pulse Oximetry 100 05/17/23 00:19 Oxygen Delivery Room Air 05/16/23 20:24 Medical Decision Making [facility] Narrative Medical decision making narrative: -Course: 62-year-old female presenting with flu-like symptoms. Viral swabs negative. Chest x-ray normal. Patient given breathing treatment for scattered for wheezing with improvement of symptoms. HP consistent with bronchitis. Patient be discharged with supportive measures. 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 Chest x-ray unremarkable. Viral swabs negative Independent EKG interpretation: Rhythm [sinus], Rate 93], [place] -[normal], [place] -[normal], QRS [narrow], QTC [normal], T waves -[negative for concerning inversions], ST Segments - [Negative for concerning elevations] Final interpretations: [Normal Sinus Rhythm] -Interventions: DuoNeb breathing treatment, dexamethasone, Tylenol, Motrin -Shared decision making / Disposition: discharge -RX Motrin Tylenol Vital Signs Vital Signs: Vital Signs Temperature 98.7 F 05/16/23 20:24 Pulse Rate 123 H 05/16/23 20:24 Respiratory Rate 20 05/16/23 20:24 Blood Pressure 131/93 H 05/16/23
[2023-05-16] MEDS: ALBUTEROL SULFATE NEB 2.5 MG/3 ML INH 10 MG INHALATION (23:40)
[2023-05-16] MEDS: IPRATROPIUM BR 0.02% INH SOLN 0.5 MG/2.5 ML VIAL 1 MG INHALATION ×3 (23:40→23:41)
[2023-05-16 23:41] VITALS: PULSE 89; RESP 17
[2023-05-16 23:50] LABS: Basophils Absolute Auto 0.1 K/mm3 (0.0-0.1); Basophils Percent Auto 0.4 % (0.2-1.2); Eosinophils Absolute Auto 0.1 K/mm3 (0-0.3); Eosinophils Percent Auto 0.8 % (0-4.4); Hematocrit 41.8 % (37.0-47.0); Hemoglobin 14.1 g/dL (12.0-15.0); Immature Granulocyte Absolute 0.05 K/mm3 (0.00-0.031); Immature Granulocyte Percent A 0.4 % (0-0.5); Lymphocytes Absolute Auto 2.17 K/mm3 (0.9-3.2); Lymphocytes Percent Auto 19.5 % (18.3-44.2); Mean Corpuscular HGB Conc 33.7 g/dl (32-36); Mean Corpuscular Hemoglobin 30.7 pg (26-34); Mean Corpuscular Volume 91.1 fl (80-100); Mean Platelet Volume 8.8 fl (7.4-10.4); Neutrophils Absolute Auto 7.8 K/mm3 (1.3-6.7); Neutrophils Percent Auto 69.9 % (45.5-73.1); Platelet Count Result 331 k/mm3 (150-375); Red Blood Count 4.59 M/mm3 (4.2-5.4); Red Cell Distribution Width 12.7 % (11.5-14.5); White Blood Count 11.2 K/mm3 (4.5-10.0)
[2023-05-16] MEDS: SODIUM CHLORIDE 0.9% IV 2,000 ML 999 ML IV CONT (23:50)
[2023-05-16] MEDS: dexAMETHasone SOD PHOS INJ 10 MG/ML 1 ML VIAL IM (23:52)
[2023-05-16] MEDS: ACETAMINOPHEN 500 MG TABLET 1000 MG PO (23:52)
[2023-05-17 00:19] VITALS: BP 123/75; PULSE 87; RESP 23; O2SAT 100
[2023-05-17 01:13] LABS: Anion Gap 6 mmol/L (8-16); Blood Urea Nitrogen 15 mg/dL (7-17); Calcium 9.2 mg/dL (8.4-10.2); Carbon Dioxide 28 mmol/L (22-30); Chloride 102 mmol/L (98-107); Estimated CRCL calculation 74 ml/min; Estimated Glomerular Filt Rate > 60; Glucose 107 mg/dL (65-110); Potassium 3.5 mmol/L (3.4-5.0); Sodium 136 mmol/L (137-145)
[2023-05-17 01:38] VITALS: PULSE 97; RESP 20
[2023-05-17 02:15] VITALS: BP 123/75; PULSE 80; RESP 20; TEMP 37.1; O2SAT 97
== END 2023-05-17 02:16 | disposition home or self-care (01) ==
PROVIDERS: Emergency Provider Emergency Medicine; PCP Family Medicine
DX: J40 Bronchitis, not specified as acute or chronic (principal); Z20.822 Contact with and (suspected) exposure to COVID-19; E78.5 Hyperlipidemia, unspecified; I10 Essential (primary) hypertension; Z87.891 Personal history of nicotine dependence
CPT/HCPCS: 36415; 71045; 80048; 85025; 87637; 93005; 94640; 96360; 96372; 99284; A9270; J1100; J7030

== ENCOUNTER 2023-07-08 13:35 | Outpatient (CLI) | payer OTHER, SELFPAY ==
--- NOTE | ~2023-07-08 | MR_ITS ---
MRI of the lumbar spine Clinical History: Spinal stenosis Technique: Axial T2-weighted images, and sagittal T1-weighted, T2-weighted, and T2 fat-sat images wer e acquired. Findings: There is no fracture or subluxation of the lumbar spine. Vertebral bodies maintain normal h eight and alignment. No suspicious bone marrow signal abnormality seen. At L1-L2 and L2-L3, there is no significant disc bulge or herniation. There is moderate to advanced f acet arthropathy at the levels. No spinal canal stenosis. There is moderate to severe left neural for aminal narrowing at L2-L3. At L3-L4, there is mild disc bulge and severe facet arthropathy. No roscoe central canal stenosis. The re is moderate to severe bilateral neural foraminal narrowing, left worse than right. At L4-L5, there is mild disc bulge with severe facet arthropathy. No central canal stenosis. There is moderate right neural foraminal narrowing, and mild left neural foraminal narrowing. At L5-S1, there is minimal disc bulge and moderate facet arthropathy. No central canal stenosis. Ther e is mild right neural foraminal narrowing. Left neural foramen preserved. Paravertebral soft tissues are unremarkable. Impression: Moderate degenerative spondylosis, as above. Reviewed, dictated and finalized at location . Impression: Moderate degenerative spondylosis, as above.
== END 2023-07-08 13:36 ==
LOC: MICIMG 13:36
PROVIDERS: PCP Family Medicine; Visit Provider Anesthesiology Pain Medicine
DX: M54.9 Dorsalgia, unspecified (principal); M54.17 Radiculopathy, lumbosacral region; G89.29 Other chronic pain; M43.06 Spondylolysis, lumbar region
CPT/HCPCS: 72148

== ENCOUNTER 2023-08-31 09:49 | Day surgery (SDC) | payer OTHER, SELFPAY ==
[2023-08-18 13:49] VITALS: BMI 37.7
--- NOTE | ~2023-08-31 | XR_ITS ---
EXAMINATION: XR fluoroscopy no charge DATE: 08/31/2023 11:45 CDT INDICATION: LEFTWARD C6-7 INTERLAMINAR EPIDURAL STEROID INJ . TECHNIQUE: 5 fluoroscopic images and 3 cine clips of the cervical spine were obtained during left C6- 7 interlaminar epidural steroid injection, performed by Joo Lund MD. I was not present during the procedure. Fluoroscopy exposure time was 11.8 seconds. Air Kerma 2.74 mGy. COMPARISON: None FINDINGS/IMPRESSION: Fluoroscopic documentation of left C6-7 interlaminar epidural steroid injection. Please refer to the operative note for complete procedural details . Reviewed, dictated and finalized at location K.
--- NOTE | 2023-08-31 11:13 | WPDHPUPDATE1 ---
History and Physical Update Update Date/Time: 08/31/23 11:13 History and Physical has been reviewed, including an updated exam of the patient. There are NO changes in the patient's condition. Risks, benefits, and alternatives have been discussed and questions answered. Patient agrees to proceed with procedure.
--- NOTE | 2023-08-31 11:14 | W.PM.PROC2 ---
Procedure Note - Detailed Date of Procedure 08/31/23 Pre-op Diagnosis Cervical Radiculopathy Post-op Diagnosis Same Procedure Performed leftward Cervical Interlaminar Epidural Steroid Injection at C6-7 under Fluoroscopic Guidance and with Contrast Control. Surgeon Joo Lund MD Anesthesia Local Description of Procedure INFORMED CONSENT: Risks, benefits and alternatives to the procedure were discussed in detail with the patient who expressed explicit understanding and consent to proceed. Patient was informed verbally and in written form regarding the risks associated with the procedure including the low risk of serious infection, bleeding/bruising, allergic reaction, nerve or organ injury, paralysis, procedural site pain or discomfort, worsening pain and/or mobility, failure to treat and/or disfigurement. The patient expressed explicit understanding and consent to proceed. All materials required for the procedure were available prior to procedure start. Site and side was marked prior to procedure and confirmed in the presence of the patient. PROCEDURE IN DETAIL: The patient was brought to the procedural suite and placed in the prone position. Patient's head was positioned and stabilized with a ProneView pillow or equivalent. Patient was made comfortable with use of pillows under the chest, hips and ankles. Skin overlying the injection site was prepared broadly with ChloraPrep applicator and draped in a sterile manner. Aseptic technique was employed throughout. The endplates of the vertebral body at the site of interest were aligned in the AP view. Slight caudad tilt and ipsilateral oblique angulation was utilized to optimize visualization of the targeted posterior intervertebral foramen at C6-7. Local anesthesia was established by infiltration with approximately 5 mL of 2% lidocaine via a 1-1/2 inch 27-gauge needle. A 20-gauge 4-inch Tuohy epidural needle was advanced intermittently until appropriate loss of resistance to air was identified via plastic loss of resistance syringe. Lateral view was used to confirm the appropriate positioning of the needle tip within the posterior epidural space. [In the AP view, 2.0 mL of Omnipaque 300 contrast medium was injected after negative aspiration for CSF, blood or other bodily fluid, showing appropriate epidural spread of contrast without evidence of intravascular or intrathecal placement.] After negative repeat aspiration for CSF, blood or other bodily fluid, A 4 mL solution containing 6 mg of betamethasone in sterile PF Normal Saline was injected after negative repeat aspiration. Appropriate spread of the injectate was confirmed with washout of previously injected contrast. No parasthesias were elicited. Needle was removed completely intact without difficulty. Images were saved and documented in the patient chart. Patient's skin was cleansed and sterile bandage applied. The patient tolerated the procedure well. The patient was transported to the recovery area in stable condition where they were observed for an appropriate amount of time prior to discharge, without evidence of complication. The patient was instructed to avoid excessive activity for the next 48 hours, including overhead work, reaching or extended device/computer usage. Showers only for 48 hours. They were instructed not to drive or operate heavy machinery for 24 hours. They are to monitor for severe headaches, fevers, chills, night sweats, erythema/swelling at the site or any other signs of infection, bleeding/bruising, bowel or bladder changes as well as new pain, weakness or numbness in the upper or lower extremity. Should they notice these changes, they are instructed to call our office immediately or report directly to the nearest Emergency Department if no answer or if after posted office hours. CONTRAST WASTED: 28mL Omnipaque 300. Complications None Condition Stable Disposition Same day [facility] Surgery - Charge Forward: Surgery Bi
[2023-08-31 11:30] VITALS: BP 133/88; PULSE 85; RESP 14; TEMP 36.3; O2SAT 97
[2023-08-31] MEDS: LIDOCAINE HCL 1% PF INJ 5 ML VIAL INFILTRATE (11:52)
[2023-08-31 11:54] VITALS: BP 154/104; PULSE 92; RESP 19; O2SAT 97
[2023-08-31 11:58] VITALS: BP 153/99; PULSE 92; RESP 15; O2SAT 98
[2023-08-31] MEDS: BETAMETHASONE SODIUM PHOSPHATE PF INJ 6 MG/ML VIAL INFILTRATE (11:58)
[2023-08-31] MEDS: LIDOCAINE HCL 1% PF INJ 5 ML VIAL 1.5 ML INFILTRATE (12:01)
[2023-08-31 12:05] VITALS: BP 142/91; PULSE 86; RESP 20; O2SAT 99
== END 2023-08-31 12:16 | disposition home or self-care (01) ==
PROVIDERS: PCP Family Medicine; Visit Provider Anesthesiology Pain Medicine
PROC: (CPT 62321; principal; 2023-08-31 11:00)
DX: M54.12 Radiculopathy, cervical region (principal)
CPT/HCPCS: 62321; 99199

== ENCOUNTER 2023-11-10 09:42 | Outpatient (CLI) | payer OTHER, SELFPAY ==
--- NOTE | 2023-11-10 11:25 | NEURO_ITS ---
Impression: # Complains of paresthesia of upper and lower extremities. # Normal Nerve Conduction Study. No Carpal Tunnel Syndrome or ulnar neuropathy. # Needle/EMG exam mildly abnormal in left deltoid and triceps but no fibs. # Findings suggestive of cervical pathology at C5/C6/7 level. Nerve Conduction Studies Anti Sensory Summary Table Stim Site NR Peak (ms) P-T Amp (?V) Site1 Site2 Delta-P (ms) Dist (cm) Shay (m/s) Left Median Anti Sensory (2-3nd Digit) Wrist 2.8 80.9 Wrist 2-3nd Digit 2.8 14.0 50 Wrist 2.8 58.2 Wrist 2-3nd Digit 2.8 14.0 50 Right Median Anti Sensory (2-3nd Digit) Wrist 2.8 87.3 Wrist 2-3nd Digit 2.8 14.0 50 Wrist 2.8 65.7 Wrist 2-3nd Digit 2.8 14.0 50 Left Radial Anti Sensory (Base 1st Digit) Wrist 2.1 27.1 Wrist Base 1st Digit 2.1 0.0 Right Radial Anti Sensory (Base 1st Digit) Wrist 2.7 12.3 Wrist Base 1st Digit 2.7 0.0 Left Sup Fibular Anti Sensory (Ant Lat Mall) 14 cm 3.5 9.7 14 cm Ant Lat Mall 3.5 16.0 46 Right Sup Fibular Anti Sensory (Ant Lat Mall) 14 cm 3.5 4.3 14 cm Ant Lat Mall 3.5 16.0 46 Left Sural Anti Sensory (Lat Mall) Calf 3.7 7.2 Calf Lat Mall 3.7 16.0 43 Right Sural Anti Sensory (Lat Mall) Calf 3.5 12.1 Calf Lat Mall 3.5 16.0 46 Left Ulnar Anti Sensory (5th Digit) Wrist 2.4 50.9 Wrist 5th Digit 2.4 14.0 58 Right Ulnar Anti Sensory (5th Digit) Wrist 2.3 75.2 Wrist 5th Digit 2.3 14.0 61 Motor Summary Table Stim Site NR Onset (ms) O-P Amp (mV) Site1 Site2 Delta-0 (ms) Dist (cm) Shay (m/s) Left Median Motor (Abd Poll Brev) Wrist 2.6 5.2 Elbow Wrist 4.5 26.0 58 Elbow 7.1 3.1 Right Median Motor (Abd Poll Brev) Wrist 2.7 9.4 Elbow Wrist 4.2 26.0 62 Elbow 6.9 4.3 Left Peroneal Motor (Vastus Med) Ankle 3.5 3.2 Popit Ankle 8.5 42.0 49 Popit 12.0 2.1 Right Peroneal Motor (Vastus Med) Ankle 3.5 5.2 Popit Ankle 7.8 38.0 49 Popit 11.3 5.0 Left Tibial Motor (Abd Monzon Brev) Ankle 3.8 5.6 Knee Ankle 8.5 41.0 48 Knee 12.3 5.5 Right Tibial Motor (Abd Monzon Brev) Ankle 3.7 3.1 Knee Ankle 8.1 38.0 47 Knee 11.8 2.5 Left Ulnar Motor (Abd Dig Minimi) Wrist 2.0 4.6 A Elbow Wrist 4.8 29.0 60 A Elbow 6.8 3.5 Right Ulnar Motor (Abd Dig Minimi) Wrist 2.4 7.3 A Elbow Wrist 4.7 28.0 60 A Elbow 7.1 6.1 F Wave Studies NR F-Lat (ms) L-R F-Lat (ms) Left Median (Mrkrs) (Abd Poll Brev) 25.71 0.27 Right Median (Mrkrs) (Abd Poll Brev) 25.44 0.27 Left Peroneal (Mrkrs) (EDB) 45.94 1.72 Right Peroneal (Mrkrs) (EDB) 44.22 1.72 Left Tibial (Mrkrs) (Abd Hallucis) 45.06 0.73 Right Tibial (Mrkrs) (Abd Hallucis) 45.79 0.73 Left Ulnar (Mrkrs) (Abd Dig Min) 24.50 0.03 Right Ulnar (Mrkrs) (Abd Dig Min) 24.53 0.03 EMG Side Muscle Nerve Root Ins Act Fibs Amp Dur Recrt Comment Right 1stDorInt Ulnar C8-T1 Nml Nml Nml Nml Nml Right Ext Indicis Radial (Post Int) C7-8 Nml Nml Nml Nml Nml Right Ext Digitorum Radial (Post Int) C7-8 Nml Nml Nml Nml Nml Right BrachioRad Radial C5-6 Nml Nml Nml Nml Nml Right PronatorTeres Median C6-7 Nml Nml Nml Nml Nml Right Abd Poll Brev Median C8-T1 Nml Nml Nml Nml Nml Right ABD Di
== END 2023-11-10 09:43 | disposition home or self-care (01) ==
PROVIDERS: PCP Family Medicine; Visit Provider Anesthesiology Pain Medicine
DX: M54.17 Radiculopathy, lumbosacral region (principal); M54.12 Radiculopathy, cervical region; R94.131 Abnormal electromyogram [EMG]
CPT/HCPCS: 95886; 95913

== ENCOUNTER 2023-11-17 12:28 | Outpatient (CLI) | payer OTHER, SELFPAY ==
--- NOTE | ~2023-11-17 | MR_ITS ---
EXAMINATION: MR shoulder LT w con DATE: 11/17/2023 15:01 INDICATION: Left shoulder pain with impingement TECHNIQUE: Magnetic resonance imaging (MRI) of the left shoulder was performed following intra-artic ular gadolinium contrast injection and without intravenous contrast. Details of the glenohumeral join t injection have been dictated separately. Sequences included axial T2-weighted FS FSE, axial T1-aquiles ghted FS FSE, coronal oblique T1-weighted FS FSE, coronal oblique T2-weighted FSE, sagittal T2-weight ed FS FSE, sagittal T1-weighted FSE, and ABER (abduction external rotation) T1-weighted FS FSE. COMPARISON: None. FINDINGS: Coracoacromial arch: The acromion undersurface is curved in morphology (type II). The coracoacromial ligament is normal. Mild acromioclavicular osteoarthritis. Rotator cuff: Mild supraspinatus tendinopathy with partial-thickness articular sided insertional tear involving no greater than one third of the tendon thickness and which extends 1 cm AP along the superior facet dudley tplate. This is best appreciated on the ABER images. The infraspinatus and teres minor tendons are no rmal. Moderate subscapularis tendinopathy with intrasubstance contrast imbibition along the cephalad third of the tendon consistent with intrasubstance split tearing with involvement of the articular si de of the tendon but without a clearly definable/measurable tear defect. Normal rotator cuff muscle b ulk and signal. Biceps tendon, glenoid labrum and glenohumeral cartilage: Long head of the biceps tendon is normal. There is relatively well-defined SLAP tear at the base of t he 12:00-11:00 position of the superior glenoid labrum with more irregular degenerative tearing with frayed margins at the 11:00-10:00 position of the posterior superior glenoid labrum. There is an xiomara tional tear at the chondral labral junction of the anteroinferior labrum which is best appreciated on the ABER imaging. There is deep chondral ulceration and fissuring without degenerative subchondral c hanges along the medial and superomedial aspects the humeral head. Small region of less severe partia l thickness chondral ulceration at the central aspect of the glenoid. Bones and other: Normal marrow signal with no edema, fracture or abnormal marrow replacing process. There are small to moderate-sized marginal osteophytes along the inferior and anteroinferior aspect of the humeral head . No abnormal increased fluid in the subacromial/subdeltoid bursa to suggest bursitis. IMPRESSION: 1. Mild to moderate glenohumeral osteoarthritis with tear of the superior to posterior superior labru m and at the anteroinferior labrum. 2. Mild supraspinatus tendinopathy with small mild articular sided tear along its superior facet foot plate. 3. Moderate subscapular tendinopathy with articular sided fraying and intrasubstance split tearing al estuardo intrasubstance imbibition of contrast but without a discrete definable tear defect. 3. Mild acromioclavicular osteoarthritis. Reviewed, dictated and finalized at location A. IMPRESSION: 1. Mild to moderate glenohumeral osteoarthritis with tear of the superior to po sterior superior labrum and at the anteroinferior labrum. 2. Mild supraspinatus tendinopathy with small mild articular sided tear along i ts superior facet footplate. 3. Moderate subscapular tendinopathy with articular sided fraying and intrasubs tance split tearing along intrasubstance imbibition of contrast but without a d iscrete definable tear defect. 3. Mild acromioclavicular osteoarthritis.
--- NOTE | ~2023-11-17 | XR_ITS ---
EXAMINATION: XR fl inj shoulder LT - MR/CT DATE: 11/17/2023 13:39 INDICATION: Left shoulder pain with impingement TECHNIQUE: A time-out was performed to verify the patient's name, date of , and procedure to b e performed. The procedure including the risks, benefits, and alternatives was discussed with the pat ient. Risks discussed included bleeding and infection. The patient understood the risks and agreed to proceed. The skin overlying the rotator cuff interval of the left glenohumeral joint was prepped an d draped in usual sterile fashion. Anesthetic was administered with 1% lidocaine subcutaneously. A 22 G needle was advanced under fluoroscopic guidance into the joint. Injection of 1 mL of Omnipaque 240 confirmed intra-articular position of the needle. Subsequently, injectate consisting of 12 mL of 2:1:1 mixture of sterile saline:Omnipaque 240:1% lidocaine mixed 200:1 with 529 mg/mL Multihance jairon olinium contrast was instilled with intra-articular administration confirmed with intermittent fluor oscopy. The needle was removed and the entry site was cleaned and dressed. There were no immediate c omplications. Fluoroscopy exposure time was 0. minutes. The total number of images was 195. Total DAP was mGycm^2 FINDINGS: Real-time fluoroscopy demonstrates the needle and contrast in the left glenohumeral joint. IMPRESSION: 1. Successful left hip joint injection of a dilute gadolinium contrast mixture for separate MRI arthr ogram which will be dictated separately. See separate MRI report for further detail.. Reviewed, dictated and finalized at location A. IMPRESSION: 1. Successful left hip joint injection of a dilute gadolinium contrast mixture for separate MRI arthrogram which will be dictated separately. See separate MRI report for further detail..
== END 2023-11-17 12:29 | disposition home or self-care (01) ==
PROVIDERS: PCP Family Medicine; Visit Provider Anesthesiology Pain Medicine
DX: M19.012 Primary osteoarthritis, left shoulder (principal); S43.432A Superior glenoid labrum lesion of left shoulder, initial encounter; M75.92 Shoulder lesion, unspecified, left shoulder; M25.812 Other specified joint disorders, left shoulder; M25.512 Pain in left shoulder
CPT/HCPCS: 23350; 73222; A9577

== ENCOUNTER 2023-12-28 07:59 | Day surgery (SDC) | payer OTHER, SELFPAY ==
[2023-12-13 12:02] VITALS: BMI 37.5
--- NOTE | ~2023-12-28 | XR_ITS ---
INTRAOPERATIVE FLUOROSCOPY: CLINICAL HISTORY: 63 years old Female; SHORTY L3,L4,L5 NERVE BLOCK PROCEDURE COMMENTS: Limited intraoperative fluoroscopy of the lower lumbar spine was performed. CUMULATIVE DOSE: 7.34 mGy FLUOROSCOPY TIME: 17.4 seconds FINDINGS/IMPRESSION: Fluoroscopic images demonstrate injection needle in good position. Please refer to operative note for further details. Reviewed, dictated and finalized at location A.
--- NOTE | 2023-12-28 05:34 | WPDHPUPDATE1 ---
History and Physical Update Update Date/Time: 12/28/23 05:34 History and Physical has been reviewed, including an updated exam of the patient. There are NO changes in the patient's condition. Risks, benefits, and alternatives have been discussed and questions answered. Patient agrees to proceed with procedure.
--- NOTE | 2023-12-28 05:35 | W.PM.PROC2 ---
Procedure Note - Detailed Date of Procedure 12/28/23 Pre-op Diagnosis Lumbosacral Spondylosis, chronic low back pain Post-op Diagnosis Same Procedure Performed Diagnostic bilateral Lumbar Medial Branch/Dorsal Ramus Blocks at L3, L4, L5 Treating the bilateral L4-5, L5-S1 Facet Joints Under Fluoroscopic Guidance and with Contrast Control. ( 4 levels blocked). Surgeon Joo Lund MD [place] None. Anesthesia Local Description of Procedure INFORMED CONSENT: Risks, benefits and alternatives to the procedure were discussed in detail with the patient who expressed explicit understanding and consent to proceed. Patient was informed verbally and in written form regarding the risks associated with the procedure including the low risk of serious infection, bleeding/bruising, allergic reaction, nerve or organ injury, paralysis, procedural site pain or discomfort, worsening pain and/or mobility, failure to treat and/or disfigurement. The patient expressed explicit understanding and consent to proceed. All materials required for the procedure were available prior to procedure start. Site and side were marked prior to procedure and confirmed in the presence of the patient. PROCEDURE IN DETAIL: The patient was brought to the procedural suite and placed in the prone position. Patient was made comfortable with use of pillows under the head/chest, hips and ankles. Skin overlying the injection site on the affected side(s) was prepared broadly with ChloraPrep applicator and draped in a sterile manner. Aseptic technique was used throughout. The endplates of the vertebral bodies at the site(s) of interest were aligned in the AP view. Ipsilateral oblique angulation was utilized to optimize visualization of the intersection between the superior articulating process and transverse process at each target site. Local anesthesia was established by infiltration with approximately 5 mL of 1% lidocaine via a 1-1/2 inch 27-gauge needle. A 25-gauge 3.5 inch Quincke spinal needle was advanced until the needle tip contacted periosteum at the target site, right L3. Lateral view was utilized to confirm the appropriate placement of the needle tip just anterior to the facet line and superior to the pedicle. In the Lateral view, 0.25 mL of Omnipaque 300 contrast medium was injected after negative aspiration for CSF, blood or other bodily fluid, showing appropriate extra-articular spread of contrast without evidence of intravascular, foraminal or intrathecal placement. A 0.5 mL solution of 0.5% PF bupivacaine was injected after negative repeat aspiration. Appropriate spread of the injectate was confirmed with washout of previously injected contrast. No parasthesias were elicited. Needle was removed completely intact without difficulty. The same exact procedure was repeated for all remaining levels on the ipsilateral side, right L4, L5 medial branches/dorsal ramus, modified as necessary to accommodate for the new target location with identical findings and results and no evidence of complication. The same exact procedure was repeated for all remaining levels on the contralateral side, left L3, L4, L5 medial branches/dorsal ramus, modified as necessary to accommodate for the new target location with identical findings and results and no evidence of complication. Images were saved and documented in the patient chart. Patient's skin was cleaned and sterile bandage applied. The patient tolerated the procedure well. The patient was transported to the recovery area in stable condition where they were observed for an appropriate amount of time prior to discharge, without evidence of complication. Patient was instructed on the appropriate completion of a pain diary over the next 12-24 hours. The patient was instructed to avoid excessive activity for the next 48 hours, including climbing and frequent use of stairs. Showers only for 48 hours. They were instructed not to drive or operate heavy machinery for 2
[2023-12-28 08:38] VITALS: BP 100/88; PULSE 77; RESP 16; TEMP 36.8; O2SAT 97
[2023-12-28 08:47] VITALS: BP 156/96; PULSE 76; RESP 17; O2SAT 97
[2023-12-28 08:54] VITALS: BP 155/85; PULSE 73; RESP 12; O2SAT 98
[2023-12-28 09:01] VITALS: BP 142/87; PULSE 71; RESP 16; O2SAT 98
[2023-12-28] MEDS: LIDOCAINE HCL 1% PF INJ 5 ML VIAL 3 ML XX (09:01)
== END 2023-12-28 09:16 | disposition home or self-care (01) ==
PROVIDERS: PCP Family Medicine; Visit Provider Anesthesiology Pain Medicine
PROC: (CPT 64493; principal; 2023-12-28 09:15)
DX: M47.817 Spondylosis without myelopathy or radiculopathy, lumbosacral region (principal); M54.59 Other low back pain
CPT/HCPCS: 64493 ×2; 64494 ×2; 99199

== ENCOUNTER 2024-02-01 06:24 | Day surgery (SDC) | payer OTHER, SELFPAY ==
[2024-01-19 11:09] VITALS: BMI 37.9
--- NOTE | ~2024-02-01 | XR_ITS ---
EXAMINATION: XR fluoroscopy no charge DATE: 02/01/2024 08:05 INDICATION: Bilateral L3, L4 and L5 lumbar medial branch nerve block TECHNIQUE: 15 fluoroscopic images of the lumbar spine were obtained during procedure performed by Dr. Lund. Radiologist was not present for the imaging or procedure. The amount of fluoroscopy time used during this procedure was 0.3 minutes. COMPARISON: None. FINDINGS: Images demonstrate needle tips advanced to the region of the bilateral L3, L4 and L5 medial branches near the junction of the transverse and superior articular processes. IMPRESSION: 1. Fluoroscopy utilized during bilateral L3, L4 and L5 medial branch blocks. See procedure note for f urther detail. Reviewed, dictated and finalized at location B. RHANGER PIPE IMPRESSION: 1. Fluoroscopy utilized during bilateral L3, L4 and L5 medial branch blocks. Se e procedure note for further detail.
--- NOTE | 2024-02-01 05:01 | WPDHPUPDATE1 ---
History and Physical Update Update Date/Time: 02/01/24 05:01 History and Physical has been reviewed, including an updated exam of the patient. There are NO changes in the patient's condition. Risks, benefits, and alternatives have been discussed and questions answered. Patient agrees to proceed with procedure.
--- NOTE | 2024-02-01 05:02 | P.OP_ITS ---
Procedure Note - Detailed Date of Procedure 02/01/24 Pre-op Diagnosis Lumbosacral Spondylosis w/o Myelopathy or Post-op Diagnosis Same Procedure Performed Diagnostic bilateral Lumbar Medial Branch/Dorsal Ramus Blocks at L3, L4, L5 Treating the bilateral L4-5, L5-S1 Facet Joints Under Fluoroscopic Guidance and with Contrast Control. ( 4 levels blocked). Surgeon Joo Lund MD Contact Finger Assembler None. Anesthesia Local Description of Procedure INFORMED CONSENT: Risks, benefits and alternatives to the procedure were discussed in detail with the patient who expressed explicit understanding and consent to proceed. Patient was informed verbally and in written form regarding the risks associated with the procedure including the low risk of serious infection, bleeding/bruising, allergic reaction, nerve or organ injury, paralysis, procedural site pain or discomfort, worsening pain and/or mobility, failure to treat and/or disfigurement. The patient expressed explicit understanding and consent to proceed. All materials required for the procedure were available prior to procedure start. Site and side were marked prior to procedure and confirmed in the presence of the patient. PROCEDURE IN DETAIL: The patient was brought to the procedural suite and placed in the prone position. Patient was made comfortable with use of pillows under the head/chest, hips and ankles. Skin overlying the injection site on the affected side(s) was prepared broadly with ChloraPrep applicator and draped in a sterile manner. Aseptic technique was used throughout. The endplates of the vertebral bodies at the site(s) of interest were aligned in the AP view. Ipsila teral oblique angulation was utilized to optimize visualization of the intersection between the superior articulating process and transverse process at each target site. Local anesthesia was established by infiltration with approximately 5 mL of 1% lidocaine via a 1-1/2 inch 27-gauge needle. A 25-gauge 5.0 inch Quincke spinal needle was advanced until the needle tip contacted periosteum at the target site, right L3. Lateral view was utilized to confirm the appropriate placement of the needle tip just anterior to the facet line and superior to the pedicle. In the Lateral view, 0.25 mL of Omnipaque 300 contrast medium was injected after negative aspiration for CSF, blood or other bodily fluid, showing appropriate extra-articular spread of contrast without evidence of intravascular, foraminal or intrathecal placement. A 0.5 mL solution of 2.0% PF lidocaine was injected after negative repeat aspiration. Appropriate spread of the injectate was confirmed with washout of previously injected contrast. No parasthesias were elicited. Needle was removed completely intact without difficulty. The same exact procedure was repeated for all remaining levels on the ipsilateral side, right L4, L5 medial branches/dorsal ramus, modified as necessary to accommodate for the new target location with identical findings and results and no evidence of complication. The same exact procedure was repeated for all remaining levels on the contralateral side, left L3, L4, L5 medial branches/dorsal ramus, modified as necessary to accommodate for the new target location with identical findings and results and no evidence of complication. Images were saved and documented in the patient chart. Patient's skin was cleaned and sterile bandage applied. The patient tolerated the procedure well. The patient was transported to the recovery area in stable condition where they were observed for an appropriate amount of time prior to discharge, without evidence of complication. Patient was instructed on the appropriate completion of a pain diary over the next 12-24 hours. The patient was instructed to avoid excessive activity for the next 48 hours, including climbing and frequent use of stairs. Showers only for 48 hours. They were instructed not to drive or operate heavy machinery for 24 hours. They are to monitor for severe headaches, fevers, chills, night sweats, erythema/swelling at the site or any other signs of infection, bleeding/bruising, bowel or bladder changes as well as new pain, weakness or numbness in the upper or lower extremity. Should they notice these changes, they are instructed to call our office immediately or report directly to the nearest Emergency Department if no answer or if after posted office hours. COMPLICATIONS: None COMMENTS: None CONTRAST WASTED: 28.5mL Omnipaque 300. Complications No immediate complications Condition Stable Disposition Same day [facility] Billing Surgery - Charge Forward: Surgery Billing
[2024-02-01 07:29] VITALS: BP 111/85; PULSE 100; RESP 16; TEMP 36.7; O2SAT 97
[2024-02-01 07:54] VITALS: BP 128/80; PULSE 90; RESP 15; O2SAT 96
[2024-02-01 08:02] VITALS: BP 127/81; PULSE 87; RESP 16; O2SAT 96
[2024-02-01] MEDS: LIDOCAINE HCL 1% PF INJ 5 ML VIAL XX (08:02)
[2024-02-01] MEDS: LIDOCAINE HCL 2% PF INJ 5 ML VIAL INFILTRATE (08:03)
[2024-02-01 08:08] VITALS: BP 123/83; PULSE 90; RESP 16; O2SAT 100
== END 2024-02-01 08:22 | disposition home or self-care (01) ==
PROVIDERS: PCP Family Medicine; Visit Provider Anesthesiology Pain Medicine
PROC: (CPT 64493; principal; 2024-02-01 08:00)
DX: M47.817 Spondylosis without myelopathy or radiculopathy, lumbosacral region (principal)
CPT/HCPCS: 64493 ×2; 64494 ×2; 99199

== ENCOUNTER 2024-02-09 17:04 | Outpatient (CLI) | payer OTHER, SELFPAY ==
[2024-02-09 18:34] LABS: Influenza A QL RT-PCR Negative (Negative); Influenza B QL RT-PCR Negative (Negative); RSV RNA, RT-PCR Negative (Negative); SARS-CoV-2 RNA PCR Negative (Negative)
== END 2024-02-09 17:05 | disposition home or self-care (01) ==
LOC: ANHLAB 17:06
PROVIDERS: PCP Family Medicine; Visit Provider Family Medicine
DX: R05.9 Cough, unspecified (principal); R50.9 Fever, unspecified
CPT/HCPCS: 87637

== ENCOUNTER 2024-02-29 07:11 | Day surgery (SDC) | payer OTHER, SELFPAY ==
[2024-02-22 11:58] VITALS: BMI 37.5
[2024-02-24 10:00] VITALS: BMI 36.5
--- NOTE | ~2024-02-29 | XR_ITS ---
XR fluoroscopy no charge 02/29/2024 08:55 Indication: Indication: Thermal radiofrequency ablation bilateral L3, L4 and L5 medial branch nerve b lock TECHNIQUE: Fluoroscopy used during Thermal radiofrequency ablation bilateral L3, L4 and L5 medial br anch nerve block performed by [Joo Lund MD] on 02/29/2024. 59 fluoroscopic images. FINDINGS: Correlate with procedure note. Impression: 1: Status post Thermal radiofrequency ablation bilateral L3, L4 and L5 medial branch nerve block. Reviewed, dictated and finalized at location B. RIAL YARD CLERK Impression: 1: Status post Thermal radiofrequency ablation bilateral L3, L4 and L5 medial b ranch nerve block.
--- NOTE | 2024-02-29 07:14 | WPDHPUPDATE1 ---
History and Physical Update Update Date/Time: 02/29/24 07:14 History and Physical has been reviewed, including an updated exam of the patient. There are NO changes in the patient's condition. Risks, benefits, and alternatives have been discussed and questions answered. Patient agrees to proceed with procedure.
--- NOTE | 2024-02-29 07:16 | W.PM.PROC2 ---
Procedure Note - Detailed Date of Procedure 02/29/24 Pre-op Diagnosis Lumbosacral Spondylosis w/o Myelopathy or Post-op Diagnosis Same Procedure Performed Thermal Radiofrequency Ablation of the bilateral Lumbar Medial Branches/Dorsal Ramus at the L3, L4, L5 Levels Treating the bilateral L4-5, L5-S1 Facet Joints Under Fluoroscopic Guidance ( 4 Levels Treated). Surgeon Joo Lund MD Certified Anesthesiologist Assistant None. Anesthesia Local (w/ MAC) Description of Procedure INFORMED CONSENT: Risks, benefits and alternatives to the procedure were discussed in detail with the patient who expressed explicit understanding and consent to proceed. Patient was informed verbally and in written form regarding the risks associated with the procedure including the low risk of serious infection, bleeding/bruising, allergic reaction, nerve or organ injury, paralysis, procedural site pain or discomfort, worsening pain and/or mobility, failure to treat and/or disfigurement. The patient expressed explicit understanding and consent to proceed. All materials required for the procedure were available prior to procedure start. Site and side were marked prior to procedure and confirmed in the presence of the patient. PROCEDURE IN DETAIL: The patient was brought to the procedural suite and placed in the prone position. Patient was made comfortable with use of pillows under the head/chest, hips and ankles. ASA standard monitors were applied and used throughout the procedure. Skin overlying the injection site on the affected side(s) was prepared broadly with ChloraPrep applicator and draped in a sterile manner. Aseptic technique was used throughout. The endplates of the vertebral bodies at the site(s) of interest were aligned in the AP view. Ipsilateral oblique angulation was utilized to optimize visualization of the intersection between the superior articulating process and transverse process at each target site. Local anesthesia was established by infiltration with approximately 5 mL of 1% lidocaine via a 1-1/2 inch 27-gauge needle divided over each site treated. A 16-gauge 150mm NewsFixedian RF needle with curved 10mm active tip was advanced in the AP view until the needle tip contacted the periosteum at the target site, the right L3 medial branch. Lateral view was utilized to adjust and confirm the appropriate placement of the needle tip just anterior to the facet line, superior to the pedicle and posterior to the foramen. Grounding electrode was in place and functioning. The appropriately-sized RF cannula was inserted into the RF needle and motor stimulation was performed with no subjective or objective evidence of recruited muscle activity with stimulation up to 2.0 volts at a frequency of 2Hz. 1.5 mL of 2.0% PF lidocaine was injected after negative aspiration. After a 90s pause, lesioning was performed to 90 degrees centigrade for 90s ensuring lack of symptoms in the extremity throughout. Needle was rotated 180 degrees and lesioning repeated in a similar manner. Patient tolerated this well. No parasthesias were elicited. Needle was removed completely intact without difficulty. The same procedure was repeated for all intended levels/ structures on the ipsilateral side, right L4, L5 medial branch/dorsal ramus with identical methodology, modified to compensate for new location, with similar results and no evidence of complication. The same exact procedure was repeated for all remaining levels on the contralateral side, left L3, L4, L5 medial branches/dorsal ramus, modified as necessary to accommodate for the new target location with identical findings/results and no evidence of complication. Images were saved and documented in the patient chart. Patient's skin was cleansed and sterile bandage applied. The patient tolerated the procedure well. The patient was transported to the recovery area in stable condition where they were observed for an appropriate amount of time prior to discharge, without evidence of complication. The patient was instructed to avoid excessive activity for the next 48 hours, including climbing and frequent use of stairs. Showers only for 48 hours. They were instructed not to drive or operate heavy machinery for 24 hours. They are to monitor for severe headaches, fevers, chills, night sweats, erythema/swelling at the site or any other signs of infection, bleeding/bruising, bowel or bladder changes as well as new pain, weakness or numbness in the upper or lower extremity. Should they notice these changes, they are instructed to call our office immediately or report directly to the nearest Emergency Department if no answer or if after posted office hours. COMPLICATIONS: None COMMENTS: None Complications No immediate complications Condition Stable Disposition PACU [facility] Billing Surgery - Charge Forward: Surgery Billing
--- NOTE | 2024-02-29 07:20 | WPDANESEPPF ---
Anes - Initial Pre Proc Eval Procedure: Operation Date: 02/29/24 08:15 Proposed Procedures p Thermal Radiofrequency Ablation Bilateral L3, L4, L5 Medial Branch/Dorsal Rami Addressing Bilateral L4-5, L5-S1 Facet Joints under Fluoroscopic Guidance with Contrast Control - Joo Lund MD Date/Time: 02/29/24 07:20 Surgeon: Joo Lund MD Pre Op Diagnosis: Lumbosacral Spondylosis w/o Myelopathy or Patient Data Age: 63 Gender: F Height: 1.57 m Weight: 90.5 kg Allergies Allergy/AdvReac Type Severity Reaction Status Date / Time morphine Allergy Intermediate Vomiting Verified 02/24/24 09:58 Home Medications ?Medication ?Instructions ?Recorded ?Confirmed ?Type amlodipine 10 mg tablet 20 mg PO DAILY 09/21/23 02/24/24 History buspirone 5 mg tablet 5 mg PO BID #60 tabs 10/26/23 02/24/24 Rx meloxicam 15 mg tablet 15 mg PO DAILY #30 tabs 10/26/23 02/24/24 Rx umeclidinium 62.5 mcg-vilanterol 1 inh inhalation DAILY #180 ea 11/01/23 02/24/24 Rx 25 mcg/actuation powdr for inhalation (Anoro Ellipta) gabapentin 300 mg capsule 300 mg PO Q8H 30 days #90 caps 11/29/23 02/24/24 Rx trazodone 100 mg tablet See Rx Instructions .Route 12/20/23 02/24/24 Rx .COMPLEX #30 tabs cetirizine 10 mg capsule (Zyrtec) 10 mg PO DAILY PRN ALLERGIES 01/04/24 02/24/24 History albuterol sulfate 90 mcg/actuation 1 - 2 puff inhalation Q4H PRN 02/11/24 02/24/24 Rx aerosol inhaler shortness of breath or wheezing #8.5 grams hydrochlorothiazide 25 mg tablet 25 mg PO QAM #90 tabs 02/21/24 02/24/24 Rx Patient hx anesthesia problems: none Family hx anesthesia problems: none Results Review: All pre-operative results and documents have been reviewed as part of the pre-operative evaluation. [facility] Past Medical History Medical History COPD (chronic obstructive pulmonary disease) Vertigo Family history of colon cancer IFG (impaired fasting glucose) HLD (hyperlipidemia) HTN (hypertension) Surgical History Surgical History History of appendectomy 1979 History of surgery on wrist 1993 Dr. Herring Family History Family History Unknown Cancer Diabetes mellitus Hypertension Social History Social History Social History: Caffeine-tea,soda Years smoked: 1 Smoking status: Former smoker Tobacco type: cigarettes Second hand tobacco smoke exposure: Yes Alcohol intake: current Drinks per week: 1 Alcohol use details: 6 drinks per month Substance use: never Substance use type: does not use Do You Feel Safe in your Home?: Yes Lack of Transportation: YES Lack of Food: Never True Current Housing: I Have Housing Concerned About Future Housing: No Difficulty Paying Gas/Electric Bills: No Difficulty Paying for Meds: No Currently Unemployed: No Education: High School Diploma/GED Difficulty w/ Childcare or Family Care: No Living arrangements: with family 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 Gender identity (if verbalized by the patient): Female Sexual Orientation (if Verbalized by the Patient): Straight or Heterosexual Spiritual care concerns: No Anes - Eval Final PreProcedure Day of Procedure 02/29/24 07:20 Patient weight: obese Heart: regular rate and rhythm Lungs: clear to auscultation Airway: Mallampati scale class II Neurological: alert and oriented Last oral intake: >/= 8 hours ASA classification: III Emergent: no Anesthetic plan: proceed Anesthesia type and monitoring: general GIVS and standard monitoring Results Review: All pre-operative results and documents have been reviewed as part of the pre-operative evaluation. Informed Consent: The patient's anesthetic plan and its attendant risks and benefits were discussed with the patient/family/POA. Questions were solicited and answers provided to the satisfaction of the patient/family/POA.
[2024-02-29 07:30] VITALS: BP 122/73; PULSE 85; RESP 18; TEMP 36.6; O2SAT 96
[2024-02-29] MEDS: LACTATED RINGERS 1,000 ML 30 ML IV CONT (07:39)
[2024-02-29] MEDS: LIDOCAINE HCL 1% PF INJ 5 ML VIAL INFILTRATE (08:27)
[2024-02-29] MEDS: BUPivacaine HCL 0.5% 10 ML AMP INFILTRATE (08:50)
[2024-02-29 08:57] VITALS: BP 106/79; PULSE 85; RESP 16; O2SAT 96
--- NOTE | 2024-02-29 09:06 | WPDANESPN ---
Anes - Prog Note Post-Op Date/Time: 02/29/24 09:06 Cardiovascular status: normal Respiratory status: normal Airway patency: baseline Mental status: baseline Post-Op hydration status: normal Vital Signs: Last Vital Signs Temp 36.6 C 02/29/24 07:30 Pulse 85 02/29/24 08:59 Resp 16 02/29/24 08:59 BP 106/79 02/29/24 08:59 Pulse Ox 96 02/29/24 08:59 O2 Del Method Room Air 02/29/24 08:59 Pain Score (VAS): 0/10 Patient Feedback: Patient satisfied with anesthetic care.
[2024-02-29 09:07] VITALS: BP 103/87; PULSE 85; RESP 16; O2SAT 94
[2024-02-29 09:17] VITALS: BP 117/84; PULSE 81; RESP 18; O2SAT 95
== END 2024-02-29 09:37 | disposition home or self-care (01) ==
PROVIDERS: PCP Family Medicine; Visit Provider Anesthesiology Pain Medicine
PROC: (CPT 64635; principal; 2024-02-29 08:15)
DX: M47.817 Spondylosis without myelopathy or radiculopathy, lumbosacral region (principal)
CPT/HCPCS: 64635 ×2; 64636 ×2; 99199

== ENCOUNTER 2024-05-05 13:49 | Outpatient (CLI) | payer OTHER, SELFPAY ==
--- NOTE | ~2024-05-05 | MR_ITS ---
EXAMINATION: MR cervical spine wo con DATE: 05/05/2024 14:22 INDICATION: Spinal stenosis, cervical region. TECHNIQUE: Magnetic resonance imaging (MRI) of the cervical spine was performed without intravenous c ontrast. COMPARISON: Cervical spine MRI 05/12/2023 FINDINGS: There is a degrees levocurvature of cervicothoracic spine. Vertebral body heights are wiley l. There is moderately decreased disc height from C4-C5 through C6-C7. There is increased T2-weighted signal intensity in the spinal cord posteriorly at C2-C3, consistent with myelomalacia. The followin g disc levels are specifically discussed: C2-C3: The disc does not extend beyond the endplate margin. There is no uncovertebral joint osteoarth ritis. There is severe bilateral facet joint osteoarthritis. There is mild bilateral neural foraminal stenosis. There is no central canal stenosis. C3-C4: The disc is bulging. There is moderate and severe left uncovertebral joint osteoarthritis. The re is severe bilateral facet joint osteoarthritis. There is moderate bilateral neural foraminal steno sis. There is mild central canal stenosis. C4-C5: The disc is bulging. There is severe bilateral uncovertebral joint osteoarthritis. There is se catrina bilateral facet joint osteoarthritis. There is moderate right and mild left neural foraminal brennen nosis. There is mild central canal stenosis. C5-C6: The disc is bulging. There is severe bilateral uncovertebral joint osteoarthritis. There is mi ld bilateral facet joint osteoarthritis. There is moderate right and mild left neural foraminal steno sis. There is mild central canal stenosis. C6-C7: The disc is bulging. There is severe bilateral uncovertebral joint osteoarthritis. There is no facet joint osteoarthritis. There is mild right and moderate left neural foraminal stenosis. There i s mild central canal stenosis. C7-T1: The disc does not extend beyond the endplate margin. There is no uncovertebral joint osteoarth ritis. There is severe bilateral facet joint osteoarthritis. There is mild bilateral neural foraminal stenosis. There is no central canal stenosis. IMPRESSION: 1. Myelomalacia at C2-C3. 2. Moderate cervical spondylosis. Reviewed, dictated and finalized at location A. INE PULLER
== END 2024-05-05 13:50 | disposition home or self-care (01) ==
PROVIDERS: PCP Neurological Surgery; Visit Provider Neurological Surgery
DX: G95.89 Other specified diseases of spinal cord (principal); M47.812 Spondylosis without myelopathy or radiculopathy, cervical region; M48.02 Spinal stenosis, cervical region
CPT/HCPCS: 72141

== ENCOUNTER 2024-06-08 16:51 | Outpatient (CLI) | payer OTHER, SELFPAY ==
--- OUTSIDE RECORDS SUMMARY | 2024-06-08 16:53 | XMS_ITS | Clinical Summary ---
Author Organization [facility] [place] [address] Address [address] [place] [address] Care Team Providers Care Macroeconomics Professor Name Role Phone José Luis Kruger MD Primary Care Provider Allergies No known active allergies Surgical History Surgery Date Site/Laterality Comments APPENDECTOMY WRIST RECONSTRUCTION Social History Tobacco Use Types Packs/Day Years Used Date Smoking Tobacco: Former Smokeless Tobacco: Never Alcohol Use Standard Drinks/Week Comments Yes 0 (1 standard drink = 0.6 oz pur e alcohol) weekly Personal Safety Answer Date Recorded Getting School Help Needed Not on file 06/04 Comments Unknown Sex and Gender Information Value Date Recorded Sex Assigned at Not on file 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 Gender Identity Not on file Sexual Orientation Not on file Obstetrics History Plan of Treatment Health Maintenance Due Date Last Done Comments Breast Cancer Screening-Mammogram 1959 Cervical Cancer Screening 1959 Colon Cancer Screening-Colonoscopy 1959 Depression Screening 1959 Hepatitis C Screening 1959 DTaP/Tdap/Td Vaccine (1 - Tdap) 11/18/1970 Hepatitis B Screening 11/18/1977 Regular Well Visit/Exam 18-64 11/18/1977 Zoster Vaccine (1 of 2) 11/18/2009 Covid-19 Vaccine (2023-2 5 season) 2023 03/18/2021, 05/21/2020, 04/18/2020 Influenza Vaccine (#1) 2023 02/03/2014 Pneumococcal vaccine <65 Aged Out No longer eligible based on patient's age to complete this topic Insurance [facility] CHOICE PLUS Care Teams Macroeconomics Professor Relationship Specialty Start Date End Date José Luis Kruger MD [address] [facility] [address] [place] [address] PCP - General 09/22/18
--- OUTSIDE RECORDS SUMMARY | 2024-06-08 16:53 | XMS_ITS | Referral Summary ---
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
[2024-06-08 17:11] LABS: Basophils Absolute Auto 0.1 K/mm3 (0.0-0.1); Basophils Percent Auto 0.5 % (0.2-1.2); Eosinophils Absolute Auto 0.2 K/mm3 (0-0.3); Eosinophils Percent Auto 2.1 % (0-4.4); Hematocrit 42.6 % (37.0-47.0); Hemoglobin 14.9 g/dL (12.0-15.0); Immature Granulocyte Absolute 0.04 K/mm3 (0.00-0.031); Immature Granulocyte Percent A 0.4 % (0-0.5); Lymphocytes Absolute Auto 2.62 K/mm3 (0.9-3.2); Lymphocytes Percent Auto 25.5 % (18.3-44.2); Mean Corpuscular Volume 85.9 fl (80-100); Mean Platelet Volume 8.6 fl (7.4-10.4); Monocytes Absolute Auto 0.8 K/mm3 (0.1-0.6); Monocytes Percent Auto 7.8 % (2.6-8.5); Neutrophils Absolute Auto 6.5 K/mm3 (1.3-6.7); Neutrophils Percent Auto 63.7 % (45.5-73.1); Platelet Count Result 461 k/mm3 (150-375); Red Blood Count 4.96 M/mm3 (4.2-5.4); Red Cell Distribution Width 12.4 % (11.5-14.5); White Blood Count 10.3 K/mm3 (4.5-10.0)
[2024-06-08 17:48] LABS: Influenza A QL RT-PCR Negative (Negative); Influenza B QL RT-PCR Negative (Negative); SARS-CoV-2 RNA PCR Negative (Negative)
[2024-06-08 18:32] LABS: Alanine Aminotransferase 50 U/L (6-35); Albumin Level 4.7 g/dL (3.5-5.1); Alkaline Phosphatase 92 U/L (38-126); Amylase 60 U/L (30-110); Anion Gap 15 mmol/L (4-12); Aspartate Amino Transferase 32 U/L (14-36); Bilirubin,Total 0.4 mg/dL (0.2-1.3); Blood Urea Nitrogen 29 mg/dL (7-17); Calcium 9.6 mg/dL (8.4-10.2); Carbon Dioxide 26 mmol/L (22-30); Chloride 97 mmol/L (98-107); Estimated Glomerular Filt Rate 39; Glucose 140 mg/dL (65-110); Lipase 107 U/L (23-300); Potassium 2.7 mmol/L (3.4-5.0); Sodium 138 mmol/L (137-145)
== END 2024-06-08 16:52 | disposition home or self-care (01) ==
LOC: ANHLAB 16:52
PROVIDERS: PCP Family Medicine; Visit Provider Physician Assistant
DX: R50.9 Fever, unspecified (principal); R10.30 Lower abdominal pain, unspecified; K57.92 Diverticulitis of intestine, part unspecified, without perforation or abscess without bleeding; R10.13 Epigastric pain
CPT/HCPCS: 36415; 80053; 82150; 83690; 85025; 87636

== ENCOUNTER 2024-06-08 19:51 | Emergency (ER) | payer OTHER, SELFPAY ==
--- NOTE | ~2024-06-08 | CT_ITS ---
CLINICAL INDICATION: Generalized abdominal pain COMPARISON: 11/17/2020. TECHNIQUE: Multiple contiguous axial images of the abdomen and pelvis were performed following the ad ministration of with 100 mL Omnipaque-350 intravenous contrast The dose-length product (DLP) was 1058.66 mGy-cm. Automated exposure control and iterative reconstruction technique were employed. FINDINGS/OBSERVATIONS: Visualized lower thorax: The bilateral lung bases are clear. The heart is borderline enlarged, without pericardial effusion. Small hiatal hernia is present. Liver: The liver demonstrates homogeneous enhancement and is not enlarged measuring 14 cm in longitudinal di mension. Gallbladder and biliary system: The gallbladder is only minimally distended, and otherwise unremarkable. Pancreas: The pancreas enhances homogeneously without ductal dilatation. Spleen: The spleen enhances homogeneously and is not enlarged measuring 8 cm in longitudinal dimension. Kidneys: The bilateral kidneys enhance symmetrically without hydronephrosis or renal calculi. Adrenal glands: Unremarkable. Gastrointestinal tract: Mural thickening with multiple diverticula and surrounding inflammatory change in the sigmoid colon, without drainable fluid collection or gross perforation. Appendix: The appendix is not definitively visualized. However, no pericecal inflammatory change is identified suggest the presence of acute appendicitis. Vasculature: Trace calcified atherosclerotic disease. Lymph nodes: No pathologically enlarged or morphologically suspicious lymph nodes within the retroperitoneum or at the root of the mesentery. Pelvic structures: The bladder is distended, and otherwise unremarkable. The uterus is anteverted and anteflexed, and otherwise unremarkable. Body wall and musculoskeletal: Small, complex fat-containing umbilical hernia. No significant degenerative disease within the lower thoracic or lumbosacral spine. IMPRESSION: Findings suggesting early/acute diverticulitis of the sigmoid colon without a drainable fluid collect ion or gross perforation. Reviewed, dictated and finalized at location A. IMPRESSION: Findings suggesting early/acute diverticulitis of the sigmoid colon without a d rainable fluid collection or gross perforation.
--- OUTSIDE RECORDS SUMMARY | 2024-06-08 19:52 | XMS_ITS | Clinical Summary ---
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
--- OUTSIDE RECORDS SUMMARY | 2024-06-08 19:52 | XMS_ITS | Referral Summary ---
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 CHOICE PLUS Care Teams Muffle Worker Relationship Specialty Start Date End Date José Luis Kruger MD [address] [facility] [address] [place] [address] PCP - General 09/22/18
[2024-06-08 20:20] VITALS: BP 133/91; PULSE 102; RESP 16; TEMP 36.1; O2SAT 100
[2024-06-08 20:41] LABS: Basophils Absolute Auto 0.1 K/mm3 (0.0-0.1); Basophils Percent Auto 0.6 % (0.2-1.2); Eosinophils Absolute Auto 0.3 K/mm3 (0-0.3); Hematocrit 42.2 % (37.0-47.0); Hemoglobin 14.9 g/dL (12.0-15.0); Immature Granulocyte Absolute 0.03 K/mm3 (0.00-0.031); Immature Granulocyte Percent A 0.2 % (0-0.5); Lymphocytes Absolute Auto 2.59 K/mm3 (0.9-3.2); Lymphocytes Percent Auto 20.9 % (18.3-44.2); Mean Corpuscular HGB Conc 35.3 g/dl (32-36); Mean Corpuscular Hemoglobin 30.3 pg (26-34); Mean Corpuscular Volume 85.8 fl (80-100); Mean Platelet Volume 8.7 fl (7.4-10.4); Monocytes Percent Auto 7.7 % (2.6-8.5); Neutrophils Absolute Auto 8.5 K/mm3 (1.3-6.7); Neutrophils Percent Auto 68.6 % (45.5-73.1); Platelet Count Result 481 k/mm3 (150-375); Red Blood Count 4.92 M/mm3 (4.2-5.4); Red Cell Distribution Width 12.3 % (11.5-14.5); White Blood Count 12.4 K/mm3 (4.5-10.0)
[2024-06-08 21:55] LABS: Alanine Aminotransferase 50 U/L (6-35); Albumin Level 4.7 g/dL (3.5-5.1); Alkaline Phosphatase 93 U/L (38-126); Anion Gap 13 mmol/L (4-12); Aspartate Amino Transferase 40 U/L (14-36); Bilirubin,Total 0.4 mg/dL (0.2-1.3); Blood Urea Nitrogen 28 mg/dL (7-17); Calcium 9.5 mg/dL (8.4-10.2); Carbon Dioxide 28 mmol/L (22-30); Chloride 97 mmol/L (98-107); Estimated CRCL calculation 40 ml/min; Estimated Glomerular Filt Rate 39; Glucose 124 mg/dL (65-110); Lipase 126 U/L (23-300); Potassium 2.8 mmol/L (3.4-5.0); Sodium 138 mmol/L (137-145)
[2024-06-08 21:59] LABS: BEDSIDEPREGUCG Negative (Negative)
[2024-06-08 22:33] LABS: Add Urine Microscopic? YES; Appearance Urine Clear (Clear); Bilirubin Urine Negative (Negative); Blood Urine Negative (Negative); Color Urine Yellow (Yellow); Glucose Urine UA Negative (Negative); Ketones Urine Negative (Negative); Leukocyte Esterase Ur Trace LEU/UL (Negative); Nitrate Urine Negative (Negative); Protein Urine Negative (Negative); Specific Grav Ur 1.012 (1.001-1.035); Urobilinogen Urine 0.2 mg/dL (<2.0)
[2024-06-08 22:47] LABS: RBC Urine 0-2 /hpf (0-2); WBC Urine 0-5 /hpf (0-3)
--- OUTSIDE RECORDS SUMMARY | 2024-06-08 23:06 | XMS_ITS | Clinical Summary ---
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
--- OUTSIDE RECORDS SUMMARY | 2024-06-08 23:06 | XMS_ITS | Referral Summary ---
Author Organization [facility] [place] [address] Address [address] [place] [address] Care Team Providers Care Outreach Analyst Name Role Phone José Luis Kruger MD [...] on file Legal Sex Female 8:40 AM CARE MGR Gender Identity Not on file Sexual Orientation Not on file Plan of Treatment Not on file Insurance [facility] CHOICE PLUS Care Teams Outreach Analyst Relationship Specialty Start Date End Date José Luis Kruger MD [address] [facility] [address] [place] [address] PCP - General 09/22/18
[2024-06-08 23:09] VITALS: BP 129/83; O2SAT 99
[2024-06-08 23:10] VITALS: O2SAT 99
--- NOTE | 2024-06-08 23:32 | ED_ITS ---
HPI - General Adult General Chief complaint: Recheck/Abnormal Lab/Rx Stated complaint: potassium bottomed out, kidneys? Time Seen by Provider: 06/08/24 22:04 History of Present Illness HPI narrative: Patient is a 63-year-old female who presents emergency department with chief complaint of low potassium patient reports that she recently had diverticulitis completed her antibiotics and reports she still had some abdominal discomfort and has noticed that she has had a low-grade fever at home the patient states that she had blood work checked and was told that her potassium was low and that she should come to the emergency department as she may need potassium replacement and maybe the CT scan. Related Data Home Medications ?Medication ?Instructions ?Recorded ?Confirmed ?Last Taken ?Type cetirizine 10 mg capsule (Zyrtec) 10 mg PO DAILY PRN ALLERGIES 01/04/24 02/24/24 Unknown History amlodipine 10 mg tablet 10 mg PO DAILY 03/20/24 Unknown History Allergies Allergy/AdvReac Type Severity Reaction Status Date / Time morphine Allergy Intermediate Vomiting Verified 06/08/24 20:23 Review of Systems 2 Review of Systems: A 10 system review of systems was completed on the patient and is negative except for what is stated in the HPI. Nursing and ancillary documentation was reviewed. [facility] Past Medical History Medical History COPD (chronic obstructive pulmonary disease) Vertigo Family history of colon cancer IFG (impaired fasting glucose) HLD (hyperlipidemia) HTN (hypertension) Surgical History Surgical History History of appendectomy 1979 History of surgery on wrist 1993 Dr. Herring Family History Family History Unknown Cancer Diabetes mellitus Hypertension Social History Social History Social History: Caffeine-tea,soda Years smoked: 1 Smoking status: Former smoker Tobacco type: cigarettes Second hand tobacco smoke exposure: Yes Alcohol intake: current Drinks per week: 1 Alcohol use details: 6 drinks per month Substance use: never Substance use type: does not use Do You Feel Safe in your Home?: Yes Lack of Transportation: No Lack of Food: Never True Current Housing: I Have Housing Concerned About Future Housing: No Difficulty Paying Gas/Electric Bills: No Difficulty Paying for Meds: No Currently Unemployed: No Education: High School Diploma/GED Difficulty w/ Childcare or Family Care: No Living arrangements: with family 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 HEAD: Normocephalic, atraumatic. EYES: PERRLA and EOMI. ENT: Nares clear, no rhinorrhea or epistaxis. Mucous membranes moist. NECK: Supple. CHEST: Clear to auscultation. No respiratory distress. HEART: Regular rate and rhythm. No murmur heard. Normal peripheral pulses. ABDOMEN: Soft, nontender, nondistended, normal active bowel sounds. EXTREMITIES: Normal range of motion. No edema. SKIN: Warm, dry, no rash. NEURO: No focal deficits. Alert and oriented x3. PSYCH: Normal mood and affect. Course Vital Signs Vital signs: Vital Signs Temperature 36.1 C L 06/08/24 20:20 Pulse Rate 102 H 06/08/24 20:20 Respiratory Rate 16 06/08/24 20:20 Blood Pressure 133/91 H 06/08/24 20:20 Pulse Oximetry 100 06/08/24 20:20 Oxygen Delivery Room Air 06/08/24 20:20 Temperature 36.1 C L 06/08/24 20:20 Pulse Rate 102 H 06/08/24 20:20 Respiratory Rate 16 06/08/24 20:20 Blood Pressure 133/91 H 06/08/24 20:20 Pulse Oximetry 100 06/08/24 20:20 Oxygen Delivery Room Air 06/08/24 20:20 Medical Decision Making MDM Narrative Medical decision making narrative: For diagnosis includes dehydration, electrolyte abnormality, diverticulitis Laboratory studies were obtained on the patient showed a white count of 12.4 electrolytes showed a potassium of 2.8 creatinine was 1.[address] scan of the abdomen pelvis showed evidence of acute diverticulitis Patient was started on oral antibiotics the patient will be given IV and p.o. potassium supplementation of potassium started on a short course of potassium for home Vital Signs Vital Signs: Vital Signs Temperature 36.1 C L 06/08/24 20:20 Pulse Rate 102 H 06/08/24 20:20 Respiratory Rate 16 06/08/24 20:20 Blood Pressure 133/91 H 06/08/24 20:20 Pulse Oximetry 100 06/08/24 20:20 Oxygen Delivery Room Air 06/08/24 20:20 Temperature 36.1 C L 06/08/24 20:20 Pulse Rate 102 H 06/08/24 20:20 Respiratory Rate 16 06/08/24 20:20 Blood Pressure 133/91 H 06/08/24 20:20 Pulse Oximetry 100 06/08/24 20:20 Oxygen Delivery Room Air 06/08/24 20:20 Lab Data 06/08/24 20:34 06/08/24 20:34 Labs: Lab Results 06/08/24 06/08/24 06/08/24 Range/Units 20:34 21:51 21:57 WBC 12.4 H (4.5-10.0) K/mm3 RBC 4.92 (4.2-5.4) M/mm3 Hgb 14.9 (12.0-15.0) g/dL Hct 42.2 (37.0-47.0) % MCV 85.8 (80-100) fl MCH 30.3 (26-34) pg MCHC 35.3 (32-36) g/dl RDW 12.3 (11.5-14.5) % Plt Count 481 H (150-375) k/mm3 MPV 8.7 (7.4-10.4) fl Immature Gran % (Auto) 0.2 (0-0.5) % Neut % (Auto) 68.6 (45.5-73.1) % Lymph % (Auto) 20.9 (18.3-44.2) % [place] % (Auto) 7.7 (2.6-8.5) % Eos % (Auto) 2.0 (0-4.4) % Baso % (Auto) 0.6 (0.2-1.2) % Lymph # (Auto) 2.59 (0.9-3.2) K/mm3 [place] # (Auto) 1.0 H (0.1-0.6) K/mm3 Eos # (Auto) 0.3 (0-0.3) K/mm3 Baso # (Auto) 0.1 (0.0-0.1) K/mm3 Abs Immat Gran (auto) 0.03 (0.00-0.031) K/mm3 Absolute Neuts (auto) 8.5 H (1.3-6.7) K/mm3 Absolute Nucleated RBC 0.000 (0.0-0.012) K/mm3 Nucleated RBC % 0.0 (0.0-0.2) % Sodium 138 (137-145) mmol/L Potassium 2.8 L* (3.4-5.0) mmol/L Chloride 97 L (98-107) mmol/L Carbon Dioxide 28 (22-30) mmol/L Anion Gap 13 H (4-12) mmol/L BUN 28 H (7-17) mg/dL Creatinine 1.35 H (0.7-1.0) mg/dL Estim Creat Clear Calc 40 ml/min Estimated GFR 39 L (59 - ) Glucose 124 H (65-110) mg/dL Calcium 9.5 (8.4-10.2) mg/dL Magnesium 2.0 (1.6-2.3) mg/dL Total Bilirubin 0.4 (0.2-1.3) mg/dL AST 40 H (14-36) U/L ALT 50 H (6-35) U/L Alkaline Phosphatase 93 (38-126) U/L Total Protein 8.0 (6.3-8.2) g/dL Albumin 4.7 (3.5-5.1) g/dL Lipase 126 (23-300) U/L Urine Color Yellow (Yellow) Urine Appearance Clear (Clear) Urine pH 6.0 (5.0-9.0) Ur Specific [place] 1.012 (1.001-1.035) Urine Protein Negative (Negative) mg/dL Urine Glucose (UA) Negative (Negative) mg/dL Urine Ketones Negative (Negative) mg/dL Ur Blood (Man) Negative (Negative) Urine Nitrate Negative (Negative) Urine Bilirubin Negative (Negative) Urine Urobilinogen 0.2 (<2.0) mg/dL Leukocyte Esterase Rfl Trace H (Negative) PRAVEEN/UL Urine RBC 0-2 (0-2) /hpf Urine WBC 0-5 (0-3) /hpf POC Urine HCG, Qual Negative (Negative) Discharge Plan Discharge Clinical Impression: Acute diverticulitis, Acute hypokalemia Patient Disposition: Home, Self-Care Condition: Stable Instructions: Antibiotic Form, Diverticulitis (ED), Hypokalemia (ED) Patient Language: Georgian Prescriptions: New potassium chloride [K-Tab] 20 mEq tablet extended release 20 meq PO BID 10 Days Qty: 20 0RF ciprofloxacin HCl 500 mg tablet 500 mg PO Q12H 10 Days Qty: 20 0RF metronidazole 500 mg tablet 500 mg PO Q8H 10 Days Qty: 30 0RF No Action meloxicam 15 mg tablet 15 mg PO DAILY Qty: 30 2RF Anoro Ellipta 62.5-25 mcg/actuation blister with device 1 inh inhalation DAILY Qty: 180 1RF trazodone 100 mg tablet See Rx Instructions .ROUTE .COMPLEX Qty: 30 5RF Dose Instruction: TAKE 1 TABLET BY MOUTH EVERY DAY AT BEDTIME NEEDED FOR INSOMNIA Rx Instructions: TAKE 1 TABLET BY MOUTH EVERY DAY AT BEDTIME NEEDED FOR INSOMNIA Zyrtec 10 mg capsule 10 mg PO DAILY PRN (Reason: ALLERGIES) albuterol sulfate 90 mcg/actuation HFA aerosol inhaler 1 - 2 puff inhalation Q4H PRN (Reason: shortness of breath or wheezing) Qty: 8.5 0RF hydrochlorothiazide 25 mg tablet 25 mg PO QAM Qty: 90 3RF amlodipine 10 mg tablet See Rx Instructions .ROUTE .COMPLEX Qty: 90 1RF Dose Instruction: TAKE 1 TABLET BY MOUTH DAILY Rx Instructions: TAKE 1 TABLET BY MOUTH DAILY amlodipine 10 mg tablet 10 mg PO DAILY diazepam [Valium] 5 mg tablet 5 mg PO BID PRN (Reason: sedation) Qty: 2 0RF Rx Instructions: take 1 pill 30 minutes before MRI and the second 5 minutes before MRI buspirone 5 mg tablet 5 mg PO BID Qty: 60 2RF ciprofloxacin HCl 500 mg tablet 500 mg PO Q12H 10 Days Qty: 20 0RF metronidazole 500 mg tablet 500 mg PO Q8H 10 Days Qty: 30 0RF gabapentin 300 mg capsule 300 mg PO Q8H 30 Days Qty: 90 2RF Rx Instructions: Take one capsule p.o. Q 8 hours. Follow-up/Referrals: José Luis Kruger MD [Primary Care Provider] - Time of Disposition: 00:48
[2024-06-09] VITALS (26 sets, daily range): BP systolic 107–131; BP diastolic 68–88; PULSE 67–106; RESP 11–25; TEMP 36.5; O2SAT 92–100
[2024-06-09] MEDS: SODIUM CHLORIDE 0.9% IV 1,000 ML 999 ML IV CONT (00:05)
[2024-06-09] MEDS: KCL 20 MEQ/SW 100 ML 100 ML 50 MEQ IVPB (00:57)
[2024-06-09] MEDS: SODIUM CHLORIDE 0.9% IV 1,000 ML 250 ML (00:57)
[2024-06-09] MEDS: POTASSIUM CHLORIDE 20 MEQ PACKET (FOR LIQUID) 40 MEQ PO (00:57)
[2024-06-09] MEDS: metroNIDAZOLE 500 MG TABLET PO (00:57)
[2024-06-09] MEDS: CIPROFLOXACIN 500 MG TAB PO (00:57)
[2024-06-09] MEDS: ONDANSETRON INJ 4 MG/2 ML VIAL IV PUSH (03:39)
== END 2024-06-09 05:40 | disposition home or self-care (01) ==
PROVIDERS: Emergency Provider Emergency Medicine; PCP Family Medicine
DX: K57.32 Diverticulitis of large intestine without perforation or abscess without bleeding (principal); E87.6 Hypokalemia; J44.9 Chronic obstructive pulmonary disease, unspecified; I10 Essential (primary) hypertension; E78.5 Hyperlipidemia, unspecified; Z87.891 Personal history of nicotine dependence
CPT/HCPCS: 36415; 74177; 80053; 81001; 81025; 83690; 83735; 85025; 96361; 96365; 96366; 96375; 99284; A9270; J2405; J3480; J7030; Q9967

== ENCOUNTER 2024-06-12 16:28 | Outpatient (CLI) | payer OTHER, SELFPAY ==
--- NOTE | ~2024-06-12 | XR_ITS ---
XR hip RT 2V w AP pelvis Ordering provider: Joo Lund MD History: . M47.817 - Spondylosis without myelopathy or radiculopathy... . Comparison: None. FINDINGS: BONES: No acute fracture or dislocation. HIP JOINT SPACES: Mild to moderate bilateral osteoarthritic changes. SACROILIAC JOINT SPACES/LUMBAR SPINE: The sacroiliac joint spaces are normal. Mild degenerative perales es of the visualized lower lumbar spine. PUBIC SYMPHYSIS: Normal. SOFT TISSUES: Normal. IMPRESSION: No acute osseous abnormality pelvis and right hip. Reviewed, dictated and finalized at location A.
--- NOTE | ~2024-06-12 | XR_ITS ---
EXAM: XR sacroiliac joints min 3V DATE: 06/12/2024 17:15 HISTORY: M46.1 - Sacroiliitis, not elsewhere classified . COMPARISON: X-ray right hip and pelvis, same date; CT abdomen pelvis 06/08/2024. FINDINGS: Normal mineralization. No fracture or dislocation. No lytic or blastic lesion. Mild bilate ral iliac side sclerosis in the SI joints, with mild osteophytosis and no erosions. Mild pelvic and h ip enthesopathy. Mild bilateral hip osteoarthritis. IMPRESSION: Mild bilateral SI joint osteoarthritis. Reviewed, dictated and finalized at location K.
--- NOTE | ~2024-06-12 | XR_ITS ---
[id number] Ordering provider: Hector Bolden MD History: . M48.02 - Spinal stenosis, cervical region . Comparison: None. FINDINGS: VERTEBRAL BODIES: Normal height and alignment. No visible fracture or subluxation. The dens is intact . DISK SPACES: Narrowing of the disc C4-C5, C5-C6 and C6-C7. Multilevel facet joint disease. Multilevel uncovertebral joint osteoarthritic changes. PARASPINOUS SOFT TISSUES: No prevertebral soft tissue swelling. IMPRESSION: No acute osseous abnormality cervical spine. Multilevel degenerative disc disease. Reviewed, dictated and finalized at location A.
--- NOTE | ~2024-06-12 | XR_ITS ---
EXAMINATION: XR lumbar spine 6V w bending DATE: 06/12/2024 17:15 INDICATION: Lumbosacral radiculopathy TECHNIQUE: Line 1. Anteroposterior, lateral in neutral, flexion and extension, bilateral oblique and coned-down lumbo sacral views of the lumbar spine were obtained. COMPARISON: CT dated 06/08/2024 and lumbar spine MR dated 07/08/2023 FINDINGS: Lumbar spine: 9 degrees lumbar dextrocurvature. 3 mm anterolisthesis L4 on L5 which remains unchanged with flexion and extension. Vertebral body heights are normal. Moderate disc height loss at L4-L5 and L5-S1. Mild disc height loss at L3-L4. Severe bilateral facet osteoarthritis at L4-L5. Mild to moderate osteoarth ritis of the remaining lumbar facet joints. IMPRESSION: 1. Moderate lower lumbar spondylosis with 3 mm anterolisthesis L4 on L5 which is unchanged with flexi on and extension. Reviewed, dictated and finalized at location B. IMPRESSION: 1. Moderate lower lumbar spondylosis with 3 mm anterolisthesis L4 on L5 which i s unchanged with flexion and extension.
--- OUTSIDE RECORDS SUMMARY | 2024-06-12 18:36 | XMS_ITS | Clinical Summary ---
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
--- OUTSIDE RECORDS SUMMARY | 2024-06-12 18:36 | XMS_ITS | Referral Summary ---
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
== END 2024-06-12 16:29 | disposition home or self-care (01) ==
PROVIDERS: PCP Family Medicine; Visit Provider Neurological Surgery
DX: M48.02 Spinal stenosis, cervical region (principal); M47.817 Spondylosis without myelopathy or radiculopathy, lumbosacral region; M47.816 Spondylosis without myelopathy or radiculopathy, lumbar region; M43.16 Spondylolisthesis, lumbar region; M47.818 Spondylosis without myelopathy or radiculopathy, sacral and sacrococcygeal region; M50.321 Other cervical disc degeneration at C4-C5 level; M50.322 Other cervical disc degeneration at C5-C6 level; M50.323 Other cervical disc degeneration at C6-C7 level
CPT/HCPCS: 72040; 72114; 72202; 73502

== ENCOUNTER 2024-06-27 16:08 | Outpatient (CLI) | payer OTHER, SELFPAY ==
--- NOTE | ~2024-06-27 | MR_ITS ---
MRI of the lumbar spine Clinical History: Spondylosis Technique: Axial T2-weighted and gradient images, and sagittal T1-weighted, T2-weighted, and STIR khoi ges were acquired. Findings: There is no fracture or subluxation of the lumbar spine. Vertebral bodies maintain normal h eight and alignment. No bone marrow signal abnormality seen. At L1-L2, there is no disc bulge or herniation. There is mild to moderate facet arthropathy. No centr al canal stenosis or neural foraminal narrowing. At L2-L3, there is no disc bulge or herniation. There is moderate facet arthropathy. No central canal stenosis. There is moderate left neural foraminal narrowing. Right neural foramen preserved. At L3-L4, there is mild degenerative distended with diffuse disc bulge and severe facet arthropathy. There is mild central canal stenosis. There is moderate to advanced bilateral neural foraminal narrow ing. At L4-L5, there is mild disc bulge with severe facet arthropathy. No roscoe central canal stenosis. Th ere is moderate right neural foraminal narrowing, and mild left neural foraminal narrowing. At L5-S1, there is minimal disc bulge with moderate facet arthropathy. No central canal stenosis or d efinite neural foraminal narrowing. Paravertebral soft tissues are unremarkable. Impression: Mild degenerative spondylosis overall, as detailed above. Reviewed, dictated and finalized at [facility]. Impression: Mild degenerative spondylosis overall, as detailed above.
== END 2024-06-27 16:09 | disposition home or self-care (01) ==
PROVIDERS: PCP Family Medicine; Visit Provider Anesthesiology Pain Medicine
DX: M47.816 Spondylosis without myelopathy or radiculopathy, lumbar region (principal)
CPT/HCPCS: 72148

== ENCOUNTER 2024-07-18 06:26 | Day surgery (SDC) | payer OTHER, SELFPAY ==
[2024-06-28 12:23] VITALS: BMI 37.9
--- NOTE | ~2024-07-18 | XR_ITS ---
EXAMINATION: XR fluoroscopy no charge DATE: 07/18/2024 8:15 CDT INDICATION: RIGHT INTRA-ARTICULAR SI JT STEROID INJ . TECHNIQUE: 4 fluoroscopic images and 2 cine clips of the right SI joint were obtained during right in tra-articular SI joint steroid injection, performed by Joo Lund MD. I was not present during the procedure. Fluoroscopy exposure time was 9.7 seconds. Air Kerma 4.08 mGy. COMPARISON: None FINDINGS/IMPRESSION: Fluoroscopic documentation of right intra-articular SI joint steroid injection. Please refer to the o perative note for complete procedural details . Reviewed, dictated and finalized at location K.
--- OUTSIDE RECORDS SUMMARY | 2024-07-18 07:11 | XMS_ITS | Clinical Summary ---
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
--- OUTSIDE RECORDS SUMMARY | 2024-07-18 07:11 | XMS_ITS | Referral Summary ---
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
--- NOTE | 2024-07-18 08:03 | PM.HPGS ---
History of Present Illness History of Present Illness Consent: Risks, benefits, and alternatives have been discussed and questions answered. Patient agrees to proceed with procedure. Chief complaint: Sacroiliitis Narrative: April Herrera is a 63 year old female presenting for right-sided SI joint steroid injection under fluoroscopic guidance to address right low back and buttock pain secondary to sacroiliitis.. Review of Systems Review of Systems: All systems reviewed & are unremarkable except as noted in HPI and below PMFSH Past Medical History Medical History COPD (chronic obstructive pulmonary disease) Vertigo Family history of colon cancer IFG (impaired fasting glucose) HLD (hyperlipidemia) HTN (hypertension) Surgical History Surgical History History of appendectomy 1979 History of surgery on wrist 1993 Dr. Herring Family History Family History Unknown Cancer Diabetes mellitus Hypertension Social History Social History Social History: Caffeine-tea,soda Years smoked: 1 Smoking status: Never smoker Tobacco type: cigarettes Second hand tobacco smoke exposure: Yes Alcohol intake: current Drinks per week: 1 Alcohol use details: 6 drinks per month Substance use: never Substance use type: does not use Do You Feel Safe in your Home?: Yes Lack of Transportation: No Lack of Food: Never True Current Housing: I Have Housing Concerned About Future Housing: No Difficulty Paying Gas/Electric Bills: No Difficulty Paying for Meds: No Currently Unemployed: No Education: High School Diploma/GED Difficulty w/ Childcare or Family Care: No Living arrangements: with family 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 Gender identity (if verbalized by the patient): Female Sexual Orientation (if Verbalized by the Patient): Straight or Heterosexual Spiritual care concerns: No Meds Home Medications and Allergies Home Medications ?Medication ?Instructions ?Recorded ?Confirmed ?Type umeclidinium 62.5 mcg-vilanterol 1 inh inhalation DAILY #180 ea 11/01/23 07/05/24 Rx 25 mcg/actuation powdr for inhalation (Anoro Ellipta) cetirizine 10 mg capsule (Zyrtec) 10 mg PO DAILY PRN ALLERGIES 01/04/24 07/05/24 History albuterol sulfate 90 mcg/actuation 1 - 2 puff inhalation Q4H PRN 02/11/24 07/05/24 Rx aerosol inhaler shortness of breath or wheezing #8.5 grams hydrochlorothiazide 25 mg tablet 25 mg PO QAM #90 tabs 02/21/24 07/05/24 Rx amlodipine 10 mg tablet See Rx Instructions .Route 03/20/24 07/05/24 Rx .COMPLEX #90 tabs buspirone 5 mg tablet 5 mg PO BID #60 tabs 05/17/24 07/05/24 Rx gabapentin 300 mg capsule 300 mg PO Q8H 30 days #90 caps 06/07/24 07/05/24 Rx trazodone 100 mg tablet See Rx Instructions .Route 06/19/24 07/05/24 Rx .COMPLEX #30 tabs efinaconazole 10 % topical 1 applic topical DAILY 48 weeks #4 07/05/24 07/05/24 Rx solution with applicator (Jublia) mL Allergies Allergy/AdvReac Type Severity Reaction Status Date / Time morphine Allergy Intermediate Vomiting Verified 07/05/24 14:08 Exam Narrative: The patient's physical exam is essentially unchanged from prior examination on 06/12/2024. Specifically, patient demonstrates normal lung capacity, tidal volume and respiratory rate without wheezes, crackles, rales or rubs. Heart rate and rhythm are regular without murmurs, gallops or rubs. No JVD. Pulses 2+ globally without increasing peripheral edema. AAOx3 with no evidence of confusion, intoxication or altered mental state, NC/AT without acute distress or altered consciousness. Speech, cognition, mood, insight and judgment at baseline and within normal limits. Assessment and Plan Assessment and plan (1) Dorsalgia: Code(s): M54.9 - Dorsalgia, unspecified Status: Acute (2) Lumbosacral spondylosis: Code(s): M47.817 - Spondylosis without myelopathy or radiculopathy, lumbosacral region Status: Acute Assessment and Plan: Proceed as planned with right sacroiliac joint steroid injection under fluoroscopic guidance. (3) Sacroiliitis: Code(s): M46.1 - Sacroiliitis, not elsewhere classified Status: Acute
--- NOTE | 2024-07-18 08:04 | WPDHPUPDATE1 ---
History and Physical Update Update Date/Time: 07/18/24 08:04 History and Physical has been reviewed, including an updated exam of the patient. There are NO changes in the patient's condition. Risks, benefits, and alternatives have been discussed and questions answered. Patient agrees to proceed with procedure.
--- NOTE | 2024-07-18 08:05 | W.PM.PROC2 ---
Procedure Note - Detailed Date of Procedure 07/18/24 Pre-op Diagnosis Sacroiliitis Post-op Diagnosis Same Procedure Performed Right Sacroiliac Joint Steroid Injection under Fluoroscopic Guidance and with Contrast Control. Surgeon Joo Lund MD Tie Knitter Helper None Anesthesia Local Description of Procedure INFORMED CONSENT: Risks, benefits and alternatives to the procedure were discussed in detail with the patient who expressed explicit understanding and consent to proceed. Patient was informed verbally and in written form regarding the risks associated with the procedure including the low risk of serious infection, bleeding/bruising, allergic reaction, nerve or organ injury, paralysis, procedural site pain or discomfort, worsening pain and/or mobility, failure to treat and/or disfigurement. The patient expressed explicit understanding and consent to proceed. All materials required for the procedure were available prior to procedure start. Site and side were marked prior to procedure and confirmed in the presence of the patient. PROCEDURE IN DETAIL: The patient was brought to the procedural suite and placed in the prone position. Patient was made comfortable with use of pillows under the head/chest, hips and ankles. Skin overlying the injection site on the affected side(s) was prepared broadly with ChloraPrep applicator and draped in a sterile manner. Aseptic technique was used throughout. The right SI joint was identified in the AP view and contralateral oblique angulation with caudal tilt was utilized to optimize visualization of the inferior and medial joint line representing the posterior portion of the joint. Local anesthesia was established by infiltration with approximately 5 mL of 2% lidocaine via a 1-1/2 inch 27-gauge needle. A 22-gauge 3.5 inch Quincke spinal needle was advanced until the needle entered the inferior third of the joint space approximately 1cm cephalad from its most inferior point. In the AP view, 0.5 mL of Omnipaque 300 contrast medium was injected after negative aspiration for CSF, blood or other bodily fluid, showing appropriate intra-articular spread of contrast without evidence of intravascular, perineural or intrathecal placement. A 1.5 mL solution containing 6 mg of betamethasone in 0.5% PF bupivacaine was injected after repeat negative aspiration. Appropriate spread of the injectate was confirmed with washout of previous injected contrast. No parasthesias were elicited. Needle was removed completely intact without difficulty. Images were saved and documented in the patient chart. Patient's skin was cleansed and sterile bandage applied. The patient tolerated the procedure well. The patient was transported to the recovery area in stable condition where they were observed for an appropriate amount of time prior to discharge, without evidence of complication. The patient was instructed to avoid excessive activity for the next 48 hours, including climbing and frequent use of stairs. Showers only for 48 hours. They were instructed not to drive or operate heavy machinery for 24 hours. They are to monitor for severe headaches, fevers, chills, night sweats, erythema/swelling at the site or any other signs of infection, bleeding/bruising, bowel or bladder changes as well as new pain, weakness or numbness in the upper or lower extremity. Should they notice these changes, they are instructed to call our office immediately or report directly to the nearest Emergency Department if no answer or if after posted office hours. COMPLICATIONS: None COMMENTS: None CONTRAST WASTED: 29.5 mL Omnipaque 300. Complications No immediate complications Condition Stable Disposition Same day [facility] Billing Surgery - Charge Forward: Surgery Billing
[2024-07-18 08:22] VITALS: BP 135/84; PULSE 90; RESP 19; O2SAT 94
[2024-07-18 08:26] VITALS: BP 128/74; PULSE 86; RESP 18; O2SAT 94
[2024-07-18] MEDS: LIDOCAINE 1% PF INJ 5 ML VIAL 2 ML INFILTRATE (08:27)
[2024-07-18] MEDS: BUPivacaine HCL 0.5% 10 ML AMP 2 ML INFILTRATE (08:27)
[2024-07-18] MEDS: BETAMETHASONE SODIUM PHOSPHATE PF INJ 6 MG/ML VIAL INFILTRATE (08:27)
[2024-07-18 08:31] VITALS: BP 125/78; PULSE 89; RESP 16; O2SAT 100
== END 2024-07-18 08:48 | disposition home or self-care (01) ==
PROVIDERS: PCP Family Medicine; Visit Provider Anesthesiology Pain Medicine
PROC: (CPT 27096; principal; 2024-07-18 08:15)
DX: M46.1 Sacroiliitis, not elsewhere classified (principal); M47.817 Spondylosis without myelopathy or radiculopathy, lumbosacral region; M54.9 Dorsalgia, unspecified
CPT/HCPCS: 27096; 99199; G0260

== ENCOUNTER 2024-07-29 08:26 | Outpatient (CLI) | payer OTHER, SELFPAY ==
--- OUTSIDE RECORDS SUMMARY | 2024-07-29 08:32 | XMS_ITS | Referral Summary ---
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
--- OUTSIDE RECORDS SUMMARY | 2024-07-29 08:32 | XMS_ITS | Clinical Summary ---
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
--- NOTE | 2024-07-29 08:38 | ECG_ITS ---
Test Date: 2024-07-29 08:53:12 Measurements Intervals Simms Rate: 86 P: 36 SD: 164 QRS: 48 QRSD: 139 T: -10 QT: 414 QTc: 496 Interpretive Statements SINUS RHYTHM RIGHT BUNDLE BRANCH BLOCK [120+ ms QRS DURATION, UPRIGHT V1, 40+ ms S IN I/aVL/V4/V5/V6] No previous ECG available for comparison Electronically Signed On 07-29-2024 15:36:39 CDT by Dean Echavarria M.D.
== END 2024-07-29 08:27 | disposition home or self-care (01) ==
PROVIDERS: PCP Family Medicine; Visit Provider Neurological Surgery
DX: Z01.818 Encounter for other preprocedural examination (principal); I45.10 Unspecified right bundle-branch block
CPT/HCPCS: 93005

== ENCOUNTER 2024-08-02 12:05 | Outpatient (CLI) | payer OTHER, SELFPAY ==
--- OUTSIDE RECORDS SUMMARY | 2024-08-02 12:08 | XMS_ITS | Referral Summary ---
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
--- OUTSIDE RECORDS SUMMARY | 2024-08-02 12:08 | XMS_ITS | Clinical Summary ---
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
[2024-08-02 14:13] LABS: INR 0.9; Prothrombin Time 12.2 Seconds (11.1-14.7)
[2024-08-02 14:23] LABS: Hematocrit 43.2 % (37.0-47.0); Hemoglobin 14.4 g/dL (12.0-15.0); Mean Corpuscular HGB Conc 33.3 g/dl (32-36); Mean Corpuscular Hemoglobin 30.2 pg (26-34); Mean Corpuscular Volume 90.6 fl (80-100); Platelet Count Result 335 k/mm3 (150-375); Red Blood Count 4.77 M/mm3 (4.2-5.4); Red Cell Distribution Width 12.8 % (11.5-14.5); White Blood Count 10.7 K/mm3 (4.5-10.0)
[2024-08-02 14:24] LABS: Add Urine Microscopic? YES; Appearance Urine Clear (Clear); Bacteria Urine None Seen /hpf; Bilirubin Urine Negative (Negative); Blood Urine Negative (Negative); Color Urine Yellow (Yellow); Glucose Urine UA Negative (Negative); Ketones Urine Negative (Negative); Leukocyte Esterase Ur 3+ LEU/UL (Negative); Need Manual Microscopic Reviewed; Nitrate Urine Negative (Negative); Non Pathogenic Casts 0-2; Protein Urine Negative (Negative); RBC Urine 0-2 /hpf (0-2); Squamous Epithelial Cell Urine Few /hpf (Few); Urobilinogen Urine 0.2 mg/dL (<2.0); WBC Urine 0-5 /hpf (0-3); pH Urine 7.5 (5.0-9.0)
== END 2024-08-02 12:06 | disposition home or self-care (01) ==
LOC: ANHSURGERY 12:06
PROVIDERS: PCP Family Medicine; Visit Provider Neurological Surgery
DX: Z01.812 Encounter for preprocedural laboratory examination (principal); M47.812 Spondylosis without myelopathy or radiculopathy, cervical region
CPT/HCPCS: 36415; 81001; 85027; 85610; 85730; 86850; 86900; 86901; 87086

== ENCOUNTER 2024-08-15 00:49 | Day surgery (SDC) | payer OTHER, SELFPAY ==
--- NOTE | 2024-08-02 12:07 | PC.NURSE ---
Report to the Outpatient Waiting Room, entrance under the green pavilion located off [facility], at time 8 AM on date _08/15/24 . Planned Procedure Time: ___10 AM .? Time changes happen often and if your time is changed the preop area will call you the afternoon before. - You and your visitor will be asked to self-screen and do not enter if you have any COVID symptoms. Please call surgeon if you need to reschedule. - A mask is optional within the hospital at this time. Patients may have clear liquids (water, carbonated beverages, clear teas, apple juice) until 3 hours prior to surgery ( 7 AM) with a maximum of 20 ounces. - No food from midnight until time of surgery and no smoking, or chewing tobacco (or any form of nicotine). No chewing gum, candy or mints. Take only the following medications with a SIP of water on the morning of surgery:AMLODIPINE,BUSPIRONE, ANORO ELLIPTA INHALER DO NOT STOP ANY OF YOUR OTHER PRESCRIPTION MEDICATIONS PRIOR TO SURGERY EXCEPT THE FOLLOWING Hold all vitamins and supplements for 3 days per anesthesiologist.LAST DOSE 08/11/24 Medications to discontinue per physician IBUPROFEN PER DR MARTINEZ Please no make-up, nail congolese, hairspray, perfume, deodorant, or body powder the day of surgery.? No jewelry (including any body piercings) or valuables the day of surgery, leave them at home.? Please take a shower or bath the night before, or the morning of, surgery with an antibacterial soap.? Wear comfortable, loose fitting clothing.? Children are encouraged to wear pajamas. - Jewelry must be removed prior to entering the operating room.? Rings and piercings that are not removed may be cut off. - The hospital will not accept responsibility for valuables.? - Please leave all valuables, including medications, at home the day of surgery. If you are going home after surgery, a licensed refuse driver must drive you home.? - NO public transportation without another adult if you receive anesthesia. - We recommend that an adult stay with you for 24 hours following discharge. - We also recommend that you do not drive, make important decision, drink alcoholic beverages, or take any drugs that were not prescribed by your health care provider for at least 24 hours after your discharge time. For Pediatric surgeries, we recommend two adults accompany the child home. Follow any additional instructions given to you from your surgeon. VERBAL AND WRITTEN instructions given to __PATIENT and asked if any additional questions and then verbalized understanding. Patient advised to call surgeon office or pre surgery nurse liaison [phone] if any additional questions.
[2024-08-02 12:10] VITALS: BMI 37.0
[2024-08-02 12:55] VITALS: BP 129/88; PULSE 96; RESP 18; TEMP 36.6; O2SAT 97
[2024-08-15] VITALS (16 sets, daily range): BP systolic 122–141; BP diastolic 76–94; PULSE 77–115; RESP 14–18; TEMP 36–36.4; O2SAT 93–99
--- NOTE | ~2024-08-15 | XR_ITS ---
INTRAOPERATIVE FLUOROSCOPY: CLINICAL HISTORY: 63 years old Female; ANTERIOR CERVICAL DISCECTOMY PROCEDURE COMMENTS: Limited intraoperative fluoroscopy of the cervical spine was performed. CUMULATIVE DOSE: 2.8 mGy FLUOROSCOPY TIME: 7.7 seconds FINDINGS/IMPRESSION: Please refer to operative note for further details. Reviewed, dictated and finalized at location A.
--- OUTSIDE RECORDS SUMMARY | 2024-08-15 00:52 | XMS_ITS | Clinical Summary ---
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
--- OUTSIDE RECORDS SUMMARY | 2024-08-15 00:52 | XMS_ITS | Referral Summary ---
Author Organization 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
--- NOTE | 2024-08-15 08:44 | P.PNAN_ITS ---
Anes - Initial Pre Proc Eval Procedure: Operation Date: 08/15/24 10:00 Proposed Procedures p C4-5, C5-6, C6-7 Anterior Cervical Discectomy and Fusion - Hector Bolden MD Date/Time: 08/15/24 08:44 Surgeon: Hector Bolden MD Pre Op Diagnosis: C4, C5, C6, C7 spondylosis, neuroforaminal narrow Patient Data Age: 63 Gender: F Height: 1.6 m Weight: 95 kg Last Vital Signs Temp 97.8 F 08/02/24 12:55 Pulse 96 08/02/24 12:55 Resp 18 08/02/24 12:55 BP 129/88 08/02/24 12:55 Pulse Ox 97 08/02/24 12:55 O2 Del Method Room Air 08/02/24 12:55 Allergies Allergy/AdvReac Type Severity Reaction Status Date / Time morphine Allergy Intermediate Vomiting Verified 08/02/24 12:11 Home Medications ?Medication ?Instructions ?Recorded ?Confirmed ?Type umeclidinium 62.5 mcg-vilanterol 1 inh inhalation DAILY #180 ea 11/01/23 08/02/24 Rx 25 mcg/actuation powdr for inhalation (Anoro Ellipta) cetirizine 10 mg capsule (Zyrtec) 10 mg PO DAILY PRN ALLERGIES 01/04/24 08/02/24 History albuterol sulfate 90 mcg/actuation 1 - 2 puff inhalation Q4H PRN 02/11/24 08/02/24 Rx aerosol inhaler shortness of breath or wheezing #8.5 grams hydrochlorothiazide 25 mg tablet 25 mg PO QAM #90 tabs 02/21/24 08/02/24 Rx amlodipine 10 mg tablet See Rx Instructions .Route 03/20/24 08/02/24 Rx .COMPLEX #90 tabs buspirone 5 mg tablet 5 mg PO BID #60 tabs 05/17/24 08/02/24 Rx gabapentin 300 mg capsule 300 mg PO Q8H 30 days #90 caps 06/07/24 08/02/24 Rx trazodone 100 mg tablet See Rx Instructions .Route 06/19/24 08/02/24 Rx .COMPLEX #30 tabs efinaconazole 10 % topical 1 applic topical DAILY 48 weeks #4 04/16/25 05/14/25 Rx solution with applicator (Jublia) mL ibuprofen 200 mg capsule 800 mg PO TID PRN PAIN 08/02/24 08/02/24 History melatonin 10 mg capsule 10 mg PO HS 08/02/24 08/02/24 History Patient hx anesthesia problems: none Family hx anesthesia problems: none Results Review: All pre-operative results and documents have been reviewed as part of the pre- operative evaluation. [facility] Past Medical History Medical History COPD (chronic obstructive pulmonary disease) Vertigo Family history of colon cancer IFG (impaired fasting glucose) HLD (hyperlipidemia) HTN (hypertension) Surgical History Surgical History History of appendectomy 1979 History of surgery on wrist 1993 Dr. Herring Family History Family History Unknown Cancer Diabetes mellitus Hypertension Social History Social History Social History: Caffeine-tea,soda Years smoked: 1 Smoking status: Never smoker Tobacco type: cigarettes Second hand tobacco smoke exposure: Yes Alcohol intake: current Drinks per week: 1 Alcohol use details: 6 drinks per month Substance use: never Substance use type: does not use Do You Feel Safe in your Home?: Yes Lack of Transportation: No Lack of Food: Never True Current Housing: I Have Housing Concerned About Future Housing: No Difficulty Paying Gas/Electric Bills: No Difficulty Paying for Meds: No Currently Unemployed: No Education: High School Diploma/GED Difficulty w/ Childcare or Family Care: No Living arrangements: with family 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 Gender identity (if verbalized by the patient): Female Sexual Orientation (if Verbalized by the Patient): Straight or Heterosexual Spiritual care concerns: No Anes - Eval Final PreProcedure Day of Procedure 08/15/24 08:44 Patient weight: obese Heart: regular rate and rhythm Lungs: clear to auscultation Airway: Mallampati scale class II Neurological: alert and oriented Last oral intake: >/= 8 hours ASA classification: III Emergent: no Anesthetic plan: proceed Anesthesia type and monitoring: general ETT and standard monitoring Results Review: All pre-operative results and documents have been reviewed as part of the pre- operative evaluation. Informed Consent: The patient's anesthetic plan and its attendant risks and benefits were discussed with the patient/family/POA. Questions were solicited and answers provided to the satisfaction of the patient/family/POA.
[2024-08-15] MEDS: LACTATED RINGERS 1,000 ML 30 ML IV CONT ×2 (09:00→12:18)
--- NOTE | 2024-08-15 09:47 | PM.IMHP ---
H&P: HPI History of Present Illness Date/Time: 08/15/24 09:47 Chief Complaint: April is a 63-year-old female with a progressive history of problems related to her neck, shoulders, hips and back. She is referred by her primary care physician Dr. Kruger. The pain seems to be worse in her neck on the left side extending to the shoulder. However it can be bilateral. It is with her most of the time but is worse with activity that involves the upper extremities especially if she has to work over head. Range motion of the neck is also uncomfortable. She also knows that range motion of her shoulders is uncomfortable. In her low back she has pain that radiates to her hips. She is noted to have an appointment with Dr. Garcia to discuss her shoulders. She does not report specific muscle group weakness or dermatomal numbness. She has not having bowel or bladder difficulty. The back pain is also related to activity. Taken together her pain is limiting and distracting for her and at times severe. All these problems have been going on for greater than a year. since I saw her last she has been using traction in his been somewhat helpful but she still has significant discomfort that limits and distraction on a daily basis. The pain radiates down both arms the elbow in a nonspecific distribution. She has not seen the shoulder expert yet as we asked her to do. Radiofrequency ablation of the cervical spine did not do as good a job as the medial branch blocks. Review of Systems Review of Systems: All systems reviewed & are unremarkable except as noted in HPI and below Denies chills, Denies fever, Denies weight gain and Denies weight loss Eyes Denies change in vision and Denies diplopia ENT Denies disequilibrium Card Denies chest pain and Denies dyspnea Resp Denies cough and Denies dyspnea GI Denies abdominal pain, Denies change in bowel habits, Denies fecal incontinence and Denies vomiting Denies hematuria, Denies oliguria, Denies difficulty urinating, Denies dysuria, Denies urinary frequency, Denies urinary hesitancy, Denies urinary incontinence and Denies urinary urgency Musc Reports as per HPI Skin/ Breast Reports system reviewed and no additional complaints, except as documented Neuro Reports as per HPIPsych Reports no additional complaints, Denies depression and Denies hopelessness Endo Reports no additional complaints and Denies polyuria Roberth/ Lymph Reports no additional complaints Aller/ Immun Reports no additional complaints [facility] Past Medical History Medical History COPD (chronic obstructive pulmonary disease) Vertigo Family history of colon cancer IFG (impaired fasting glucose) HLD (hyperlipidemia) HTN (hypertension) Surgical History Surgical History History of appendectomy 1979 History of surgery on wrist 1993 Dr. Herring Family History Family History Unknown Cancer Diabetes mellitus Hypertension Social History Social History Social History: Caffeine-tea,soda Years smoked: 1 Smoking status: Never smoker Tobacco type: cigarettes Second hand tobacco smoke exposure: Yes Alcohol intake: current Drinks per week: 1 Alcohol use details: 6 drinks per month Substance use: never Substance use type: does not use Do You Feel Safe in your Home?: Yes Lack of Transportation: No Lack of Food: Never True Current Housing: I Have Housing Concerned About Future Housing: No Difficulty Paying Gas/Electric Bills: No Difficulty Paying for Meds: No Currently Unemployed: No Education: High School Diploma/GED Difficulty w/ Childcare or Family Care: No Living arrangements: with family 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 Gender identity (if verbalized by the patient): Female Sexual Orientation (if Verbalized by the Patient): Straight or Heterosexual Spiritual care concerns: No Meds Home Medications and Allergies Home Medications ?Medication ?Instructions ?Recorded ?Confirmed ?Type umeclidinium 62.5 mcg-vilanterol 1 inh inhalation DAILY #180 ea 11/01/23 08/02/24 Rx 25 mcg/actuation powdr for inhalation (Anoro Ellipta) cetirizine 10 mg capsule (Zyrtec) 10 mg PO DAILY PRN ALLERGIES 01/04/24 08/02/24 History albuterol sulfate 90 mcg/actuation 1 - 2 puff inhalation Q4H PRN 02/11/24 08/02/24 Rx aerosol inhaler shortness of breath or wheezing #8.5 grams hydrochlorothiazide 25 mg tablet 25 mg PO QAM #90 tabs 02/21/24 08/15/24 Rx amlodipine 10 mg tablet See Rx Instructions .Route 03/20/24 08/15/24 Rx .COMPLEX #90 tabs buspirone 5 mg tablet 5 mg PO BID #60 tabs 05/17/24 08/02/24 Rx gabapentin 300 mg capsule 300 mg PO Q8H 30 days #90 caps 06/07/24 08/02/24 Rx trazodone 100 mg tablet See Rx Instructions .Route 06/19/24 08/02/24 Rx .COMPLEX #30 tabs efinaconazole 10 % topical 1 applic topical DAILY 48 weeks #4 07/05/24 08/02/24 Rx solution with applicator (Jublia) mL ibuprofen 200 mg capsule 800 mg PO TID PRN PAIN 08/02/24 08/15/24 History melatonin 10 mg capsule 10 mg PO HS 08/02/24 08/02/24 History Allergies Allergy/AdvReac Type Severity Reaction Status Date / Time morphine Allergy Intermediate Vomiting Verified 08/15/24 09:30 Vital Signs Vital Signs - 24 hr 08/15/24 09:00 Temperature 97.1 F L Pulse Rate 94 Respiratory Rate 14 Blood Pressure 122/84 Pulse Oximetry 98 Oxygen Delivery Room Air Exam Narrative: Exam Exam Const Other: General: cooperative, no acute distress, well developed, alert and awake Orientation/Consciousness: oriented to person, oriented to place and oriented to time Constitutional Limitations: no limitations Other: The patient is a normally developed, normal appearing male sitting on the examination table in no acute distress. He is awake, alert, and oriented x3 with good fund of knowledge, recall of events, and fluent speech. [facility] Head: normocephalic and atraumatic Ears: external ears normal Face/Nose/Sinus: Normal external nose present Eyes Eyelids: eyelids normal Pupils: Yes Pupils normal by confrontation EOM: EOMs intact bilaterally Neck General: Yes no meningeal signs, Yes supple and Yes no JVD Resp Effort/Inspection: normal respiratory effort and able to speak in complete sentences Cardio Rate: Yes regular rate GI Inspection: No abdominal distension Musc Other: Examination of the back reveals no tenderness. there is mild tenderness in the paraspinous neck musculature extending to the trapezius [id number]-left. Range of motion of the back is Limited in flexion and extension secondary to discomfort. Range motion of the neck is decreased in lateral rotation and extension. Range motion of the shoulders is decreased in forward flexion and abduction on the right. Straight leg raise is negative bilaterally. Aleksandr?s test is Positive on the right more than left. Skin General: normal color Neuro General: Yes oriented to person, Yes oriented to place, Yes oriented to time, Yes normal cognition and Yes no meningeal signs Cranial Nerves: Yes CN's II-XII intact bilaterally Other: Motor: Strength is normal, 5/5, throughout all muscle groups of the bilateral upper and lower extremities to direct confrontation. Sensory: Sensation is intact to light touch throughout the upper and lower extremities bilaterally. Reflexes: deep tendon reflexes are normal and symmetric at the knees and difficult to elicit at the ankles bilaterally. They are difficult to elicit at the biceps and triceps and brachioradialis bilaterally. There is no Rice's. There is no clonus. Gait: Gait, station, and transfers are independent and steady for short periods of time and over short distances. Psych Appearance: grossly normal Mental status: Yes mental status grossly normal Mood: congruent mood Affect: Yes normal affect Speech/Movement: Normal speech and movement present Attitude: Yes cooperative Thought Content: Normal thought content present Assessment and Plan Assessment and plan (1) Cervical spondylosis: Code(s): M47.812 - Spondylosis without myelopathy or radiculopathy, cervical region Status: Acute (2) Cervical radiculopathy: Code(s): M54.12 - Radiculopathy, cervical region Status: Acute (3) Foraminal stenosis of cervical region: Code(s): M48.02 - Spinal stenosis, cervical region Status: Acute Darren Chen is a 63-year-old female with neck and bilateral upper extremity pain likely related to pathology at C4-5, C5-6 and C6-7. Do not believe that she can escape having all these levels operated and give her confidence of improvement and therefore recommend a C4-7 anterior cervical diskectomy and fusion. I described to her that operation, its risks, potential benefits, the operative and postoperative course in detail and answered all her questions personally. We discussed risks including but not limited to permanent neurologic or functional deficit related to injury of the trachea, esophagus, carotid artery, jugular vein, recurrent laryngeal nerve causing hoarseness aspiration, spinal cord or nerve roots causing permanent neurologic deficit, need for reoperation secondary to an infection, bleeding, CSF leak, adjacent level disease, recurrent or residual pathology, instability, malposition or migration of the hardware or nonunion, failure of the procedure to relieve her pain or symptoms, persistent pain, medical complications related to anesthesia or surgery, etc.. She indicates understanding and elects to proceed with the operation. We had a long discussion about the surgery in his postoperative course and alternatives which she has exhausted.
--- NOTE | 2024-08-15 09:49 | WPDHPUPDATE1 ---
History and Physical Update Update Date/Time: 08/15/24 09:49 History and Physical has been reviewed, including an updated exam of the patient. There are NO changes in the patient's condition. Risks, benefits, and alternatives have been discussed and questions answered. Patient agrees to proceed with procedure.
[2024-08-15] MEDS: ceFAZolin 2 GM/D5W 50 ML 2 GM/50 ML BAG IVPB (10:15)
[2024-08-15] MEDS: LIDO 1%/EPINEPHRINE 1:100,000 50 ML VIAL 10 ML INFILTRATE (10:15)
--- NOTE | 2024-08-15 12:24 | W.PM.PROC2 ---
Procedure Note - Detailed Date of Procedure 08/15/24 Pre-op Diagnosis C4, C5, C6, C7 spondylosis, neuroforaminal narrow Post-op Diagnosis Same Procedure Performed C4-5, C5-6 and C6-7 complete diskectomy and bilateral neural foraminotomy, C4-5, C5-6 and C6-7 interbody arthrodesis utilizing titanium interbody device, local autograft and magnetos, C4 through 7 anterior cervical plating Surgeon Hector Bolden MD Anesthesia General Description of Procedure Patient was brought to the operating room in the supine position, was sedated, intubated placed under general anesthesia in routine fashion. The of operation on the right side of the neck was examined, marked for incision, prepped routine sterile fashion. Incision was marked from the midline over the medial aspect of the sternocleidomastoid muscle and curvilinear transverse fashion 2 fingerbreadths above the sternal notch. This area was injected with 0.5% lidocaine with [id number] epinephrine. Intravenous antibiotics given prior to incision. Incision was made with a 10 blade scalpel down to the platysma muscle. The skin was undermined the platysma muscle was divided longitudinally with its fibers using Metzenbaum scissors. A plane was then dissected medial to the sternocleidomastoid muscle down to the anterior aspect of spine using the finger Metzenbaum scissors. A verifying x-rays obtained to verify the level of operation. The longus colli muscle was dissected free of the anterior aspect of the spine in a subperiosteal plane using Bovie cautery at C4-5, C5-6 and C6-7. Shadow Line retractor system was placed. Stevan pins were placed over each disc space sequentially and distraction placed. Diskectomy and arthrodesis procedures were performed identically at each level. The disc space was entered using a 15 blade scalpel cutting along the margin of the bone above and below. A curved curette pituitary rongeur used to remove as much cartilaginous endplate and disc material as possible down to the annulus and ligament posteriorly. A Midas Joni drill was used to bur down the endplates to bleeding cortical flat surfaces as well as to begin a bony foraminotomy bilaterally. Under microscopy the annulus and ligament were interrupted using an 4-0 curved curette. 2. Kerrison punch was used to remove annulus, ligament, posterior osteophyte and to complete a bony foraminotomy bilaterally. This was done until a nerve hook could be placed out each foramen and in the ventral epidural space to confirm lack of compression. The disc spaces were then sized appropriately sized interbody devices were chosen filled with local autograft bone and magnetos. The interbody devices were then placed to a 2-3 mm countersink within the disc space. The Stevan pins and distraction removed. An anterior cervical plate was chosen placed in position and secured using 8 14 x 4 mm anterior screws advanced into the locking mechanism of the plate to hand tightness. The locking mechanism was engaged at each screw. A verifying x-rays obtained to verify good position of the instrumentation which was confirmed. The wound was then copiously irrigated with bacitracin irrigation all bleeding stopped with bipolar and Bovie cautery and Gelfoam thrombin powder. The wound was then closed in layered fashion with 3-0 Vicryl interrupted sutures in the platysma muscle and in the dermis. The skin was closed with a running 4-0 Monocryl subcuticular stitch and dressed with Dermabond. The patient was allowed to wake up in the operating room and was taken to the recovery room in stable condition. There were no immediate complications of this operation. All counts reported correct at the end the case. Blood loss was 25 cc. The patient was neurologically at baseline postoperatively. CPT codes: 34345, 03260 x2, 18207, 93637 x 3, 50220 x 3 Estimated Blood Loss 25 Complications None Condition Stable Disposition PACU [facility] Billing Surgery - Charge Forward: Surgery Billing
[2024-08-15] MEDS: fentaNYL CITRATE INJ (*CRX) 100 MCG/2 ML VIAL 25 MCG IV PUSH ×7 (12:26→13:15)
[2024-08-15] MEDS: HYDROmorphone HCL INJ (*CRX) 2 MG/ML VIAL 0.5 MG IV PUSH (14:08)
[2024-08-15] MEDS: KCL 20 MEQ/D5/0.45% SOD CHL 1,000 ML 100 ML IV CONT (14:14)
--- NOTE | 2024-08-15 14:30 | ADMGEN ---
This patient, April Herrera, was admitted to [facility] Surg Room 311-01. Patient/family oriented to hospital policies and general routines including ID bracelet, bed and alarms, visiting hours, pain management, procedures, bathroom and other care routines, personal items, smoking policy, room service/diet, and visiting hours. Information on how to activate the Rapid Response Team has been discussed. Patient/Family are encouraged to report perceived risks to care and to ask questions if they do not understand what they are told or what they should do.
--- NOTE | 2024-08-15 15:21 | PCPTNOTE ---
Attempted PT evaluation, pt declined to participate at this time due to pain. Will follow.
[2024-08-15] MEDS: HYDROcodone/acetaminophen (*CRX) 10-325 MG TABLET 1 TAB PO ×2 (16:37→21:21)
[2024-08-15] MEDS: GABAPENTIN 300 MG CAPSULE PO ×2 (16:42→21:24)
[2024-08-15] MEDS: busPIRone HCL 5 MG TABLET PO (16:42)
[2024-08-15] MEDS: amLODIPine BESYLATE 5 MG TABLET 10 MG BY MOUTH (21:20)
[2024-08-15] MEDS: traZODone HCL 50 MG TABLET 100 MG BY MOUTH (21:20)
[2024-08-15] MEDS: DOCUSATE SODIUM 100 MG CAPSULE PO (21:21)
[2024-08-15] MEDS: MELATONIN 5 MG TABLET 10 MG PO (21:21)
[2024-08-16] MEDS: HYDROcodone/acetaminophen (*CRX) 10-325 MG TABLET 1 TAB PO ×4 (01:30→14:01)
[2024-08-16 04:09] VITALS: BP 121/82; PULSE 80; RESP 18; TEMP 36.3; O2SAT 93
[2024-08-16] MEDS: GABAPENTIN 300 MG CAPSULE PO ×2 (05:55→14:01)
[2024-08-16 07:32] VITALS: PULSE 65; RESP 14
[2024-08-16] MEDS: UMECLIDINIUM/VILANTEROL 62.5-25 MCG ELLIPTA 1 PUFF INHALATION (07:32)
[2024-08-16 08:30] VITALS: BP 109/82; PULSE 87; RESP 18; TEMP 36.4; O2SAT 96
[2024-08-16] MEDS: DOCUSATE SODIUM 100 MG CAPSULE PO (08:41)
[2024-08-16] MEDS: hydroCHLOROthiazide 25 MG TABLET PO (08:41)
[2024-08-16] MEDS: busPIRone HCL 5 MG TABLET PO (08:42)
[2024-08-16] MEDS: CYCLOBENZAPRINE HCL 10 MG TABLET PO (08:46)
[2024-08-16] MEDS: MAG HYDROX/AL HYDROX/SIMETH 30 ML UDC 20 ML PO (10:09)
--- NOTE | 2024-08-16 11:55 | PCPTNOTE ---
On 08/16/24, the student, [Shan Gordon], provided care and completed [facility] documentation on this patient. I have reviewed the student's documentation and agree with the findings.
[2024-08-16 12:30] VITALS: BP 121/70; PULSE 83; RESP 18; TEMP 36.4; O2SAT 95
== END 2024-08-16 14:20 | disposition home or self-care (01) ==
LOC: ANHSURGERY 08:02 → ANH3MEDSUR 13:42
PROVIDERS: PCP Family Medicine; Visit Provider Neurological Surgery
PROC: (CPT 63030; principal; 2024-08-15 10:00)
DX: M47.812 Spondylosis without myelopathy or radiculopathy, cervical region (principal); M47.22 Other spondylosis with radiculopathy, cervical region; I10 Essential (primary) hypertension; E78.5 Hyperlipidemia, unspecified; J44.9 Chronic obstructive pulmonary disease, unspecified; E66.9 Obesity, unspecified; Z68.36 Body mass index [BMI] 36.0-36.9, adult
CPT/HCPCS: 22551; 22552 ×2; 22853 ×3; 20936; 94640; 97161; 97165; 97530; 97535; 99199; A9270; C1713; J0690; J1100; J1171; J2003; J2004; J2250; J2405; J2704; J3010; J3480; J7120

== ENCOUNTER 2024-10-02 09:08 | Outpatient (CLI) | payer OTHER, SELFPAY ==
--- NOTE | ~2024-10-02 | XR_ITS ---
XR_CERV2-3V_CR Ordering provider: Hector Bolden MD History: . Z98.1 - Arthrodesis status . Comparison: None. FINDINGS: VERTEBRAL BODIES: Normal height and alignment. No visible fracture or subluxation. The dens is intact . Postoperative changes seen at the levels of C4, C5, C6 and C7. DISK SPACES: Disc spacers seen at the level of C4-C5, C5-C6 and C6-C7. PARASPINOUS SOFT TISSUES: No prevertebral soft tissue swelling. IMPRESSION: No acute osseous abnormality cervical spine. Postoperative changes seen anteriorly. Reviewed, dictated and finalized at location A.
--- OUTSIDE RECORDS SUMMARY | 2024-10-02 09:13 | XMS_ITS | Referral Summary ---
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
--- OUTSIDE RECORDS SUMMARY | 2024-10-02 09:13 | XMS_ITS | Clinical Summary ---
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
== END 2024-10-02 09:09 | disposition home or self-care (01) ==
PROVIDERS: PCP Family Medicine; Visit Provider Neurological Surgery
DX: Z98.1 Arthrodesis status (principal)
CPT/HCPCS: 72040

== ENCOUNTER 2024-11-27 16:23 | Outpatient (CLI) | payer OTHER, SELFPAY ==
--- NOTE | ~2024-11-27 | XR_ITS ---
XR_CERV2-3V_CR Indication: Z98.1 - Arthrodesis status Comparison: None Findings: Anterior fixation of C4, C5, C6 and C7 with disc prostheses, the hardware is intact with no acute fracture. Minimal loss of the remaining disc heights. Soft tissues unremarkable Impression: No acute abnormality. Reviewed, dictated and finalized at location A. Impression: No acute abnormality.
--- OUTSIDE RECORDS SUMMARY | 2024-11-27 16:27 | XMS_ITS | Clinical Summary ---
Author Organization 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 Gender Identity Not on file Sexual Orientation Not on file Obstetrics History Plan of Treatment Health Maintenance Due Date Last Done Comments Breast Cancer Screening-Mammogram 1959 Cervical Cancer Screening 1959 Colon Cancer Screening-Colonoscopy 1959 Depression Screening 1959 Fall Risk Assessment 1959 Hepatitis C Screening 1959 Osteoporosis Screening-Bone Density Scan 1959 DTaP/Tdap/Td Vaccine (1 - Tdap) 11/18/1970 Hepatitis B Screening 11/18/1977 Pneumococcal vaccine 65+ (1 of 1 - PCV) 11/18/2009 Zoster Vaccine (1 of 2) 11/18/2009 Well Visit 65+ 11/18/2024 Covid-19 Vaccine ( season) 2024 03/18/2021, 05/21/2020, 04/18/2020 Influenza Vaccine (#1) 2024 02/03/2014 Insurance [facility] CHOICE PLUS Care Teams Quality Control Director Relationship Specialty Start Date End Date José Luis Kruger MD [address] [facility] [address] [place] [address] PCP - General 09/22/18
== END 2024-11-27 16:24 | disposition home or self-care (01) ==
PROVIDERS: PCP Family Medicine; Visit Provider Neurological Surgery
DX: Z98.1 Arthrodesis status (principal)
CPT/HCPCS: 72040

== ENCOUNTER 2024-12-04 10:27 | Day surgery (SDC) | payer OTHER, SELFPAY ==
[2024-11-28 10:21] VITALS: BMI 38.2
--- NOTE | ~2024-12-04 | XR_ITS ---
XR fluoroscopy no charge Indication:Bilateral L4-5 and L5-S1 transforaminal epidural steroid injection TECHNIQUE: Fluoroscopy used during Bilateral L4-5 and L5-S1 transforaminal epidural steroid injection performed by [Joo Lund MD] on 12/04/2024. 121 seconds of fluoroscopy time with 16 fluoroscopic images captured. FINDINGS: Correlate with procedure note. IMPRESSION: Fluoroscopy used during Bilateral L4-5 and L5-S1 transforaminal epidural steroid injection. Reviewed, dictated and finalized at location O. IMPRESSION: Fluoroscopy used during Bilateral L4-5 and L5-S1 transforaminal epi dural steroid injection.
--- NOTE | 2024-12-04 10:31 | WPDANESEPPF ---
Anes - Initial Pre Proc Eval Procedure: Operation Date: 12/04/24 11:50 Proposed Procedures p Thermal Radio Frequency Ablation of Bilateral L3, L4, L5 Medial Branches/Dorsal Rami Addressing Bilateral L4-5, L5-S1 Facet Joints Under Fluoroscopic Guidance - Joo Lund MD Date/Time: 12/04/24 10:31 Surgeon: Joo Lund MD Pre Op Diagnosis: spondylosis lumbar region Patient Data Age: 64 Gender: F Height: 1.6 m Weight: 98 kg Allergies Allergy/AdvReac Type Severity Reaction Status Date / Time morphine Allergy Intermediate Vomiting Verified 12/04/24 11:02 Home Medications ?Medication ?Instructions ?Recorded ?Confirmed ?Type cetirizine 10 mg capsule (Zyrtec) 10 mg PO DAILY PRN ALLERGIES 01/04/24 11/28/24 History albuterol sulfate 90 mcg/actuation 1 - 2 puff inhalation Q4H PRN 02/11/24 11/28/24 Rx aerosol inhaler shortness of breath or wheezing #8.5 grams hydrochlorothiazide 25 mg tablet 25 mg PO QAM #90 tabs 02/21/24 11/28/24 Rx trazodone 100 mg tablet See Rx Instructions .Route 06/19/24 11/28/24 Rx .COMPLEX #30 tabs ibuprofen 200 mg capsule 800 mg PO TID PRN PAIN 08/02/24 11/28/24 History melatonin 10 mg capsule 10 mg PO HS 08/02/24 11/28/24 History gabapentin 300 mg capsule 300 mg PO Q8H 30 days #90 caps 09/09/24 11/28/24 Rx amlodipine 10 mg tablet See Rx Instructions .Route 09/19/24 11/28/24 Rx .COMPLEX #90 tabs atorvastatin 20 mg tablet (Lipitor) 20 mg PO DAILY #90 tabs 10/24/24 11/28/24 Rx umeclidinium 62.5 mcg-vilanterol 1 inh inhalation DAILY #180 ea 10/26/24 11/28/24 Rx 25 mcg/actuation powdr for inhalation (Anoro Ellipta) efinaconazole 10 % topical 1 applic topical DAILY 48 weeks #4 11/23/24 11/28/24 Rx solution with applicator (Jublia) mL buspirone 5 mg tablet 5 mg PO BID PRN anxiety 11/28/24 11/28/24 History methocarbamol 500 mg tablet 500 mg PO QHS PRN pain 11/28/24 11/28/24 History Patient hx anesthesia problems: none Family hx anesthesia problems: none Results Review: All pre-operative results and documents have been reviewed as part of the pre-operative evaluation. [facility] Past Medical History Medical History COPD (chronic obstructive pulmonary disease) Vertigo Family history of colon cancer IFG (impaired fasting glucose) HLD (hyperlipidemia) HTN (hypertension) Surgical History Surgical History History of cervical discectomy History of fusion of cervical spine History of appendectomy 1979 History of surgery on wrist 1993 Dr. Herring Family History Family History Unknown Cancer Diabetes mellitus Hypertension Social History Social History (Updated 11/27/24 @ 16:03 by Shira Bourgeois MA) Social History: Caffeine-tea,soda Years smoked: 0.5 Smoking status: Former smoker Tobacco type: cigarettes Second hand tobacco smoke exposure: Yes Alcohol intake: current Drinks per week: 2 Alcohol use details: ONE PER MONTH Substance use: never Substance use type: does not use Do You Feel Safe in your Home?: Yes Lack of Transportation: No Lack of Food: Never True Current Housing: I Have Housing Concerned About Future Housing: No Difficulty Paying Gas/Electric Bills: No Difficulty Paying for Meds: No Currently Unemployed: No Education: Decline to Answer Difficulty w/ Childcare or Family Care: No Living arrangements: with family 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 Gender identity (if verbalized by the patient): Female Sexual Orientation (if Verbalized by the Patient): Straight or Heterosexual Spiritual care concerns: No Anes - Eval Final PreProcedure Day of Procedure 12/04/24 10:31 Heart: regular rate and rhythm Lungs: clear to auscultation Airway: Mallampati scale class II Neurological: alert and oriented Last oral intake: >/= 8 hours ASA classification: III Anesthetic plan: proceed Anesthesia type and monitoring: monitored anesthesia care Results Review: All pre-operative results and documents have been reviewed as part of the pre-operative evaluation. Informed Consent: The patient's anesthetic plan and its attendant risks and benefits were discussed with the patient/family/POA. Questions were solicited and answers provided to the satisfaction of the patient/family/POA.
--- NOTE | 2024-12-04 10:48 | WPDHPUPDATE1 ---
History and Physical Update Update Date/Time: 12/04/24 10:48 History and Physical has been reviewed, including an updated exam of the patient. There are NO changes in the patient's condition. Risks, benefits, and alternatives have been discussed and questions answered. Patient agrees to proceed with procedure.
--- NOTE | 2024-12-04 10:49 | P.OP_ITS ---
Procedure Note - Detailed Date of Procedure 12/04/24 Pre-op Diagnosis spondylosis lumbar region, chronic low back pain Post-op Diagnosis Same Procedure Performed Thermal Radiofrequency Ablation of the bilateral Lumbar Medial Branches/Dorsal Ramus at the L3, L4, L5 Levels Treating the bilateral L4-5, L5-S1 Facet Joints Under Fluoroscopic Guidance (4 Levels Treated). Surgeon Joo Lund MD Skiver Operator None. Anesthesia Local (w/ MAC) Description of Procedure INFORMED CONSENT: Risks, benefits and alternatives to the procedure were discussed in detail with the patient who expressed explicit understanding and consent to proceed. Patient was informed verbally and in written form regarding the risks associated with the procedure including the low risk of serious infection, bleeding/bruising, allergic reaction, nerve or organ injury, paralysis, procedural site pain or discomfort, worsening pain and/or mobility, failure to treat and/or disfigurement. The patient expressed explicit understanding and consent to proceed. All materials required for the procedure were available prior to procedure start. Site and side were marked prior to procedure and confirmed in the presence of the patient. PROCEDURE IN DETAIL: The patient was brought to the procedural suite and placed in the prone position. Patient was made comfortable with use of pillows under the head/chest, hips and ankles. ASA standard monitors were applied and used throughout the procedure. Skin overlying the injection site on the affected side(s) was prepared broadly with ChloraPrep applicator and draped in a sterile manner. Aseptic technique was used throughout. The endplates of the vertebral bodies at the site(s) of interest were aligned in the AP view. Ipsilateral oblique angulation was utilized to optimize visualization of the intersection between the superior articulating process and transverse process at each target site. Local anesthesia was established by infiltration with approximately 5 mL of 1% lidocaine via a 1-1/2 inch 27-gauge needle divided over each site treated. A 16-gauge 150 mm [employer] RF needle with curved 10mm active tip was advanced in the AP view until the needle tip contacted the periosteum at the target site, the right L3 medial branch. Lateral view was utilized to adjust and confirm the appropriate placement of the needle tip just anterior to the facet line, superior to the pedicle and posterior to the foramen. Grounding electrode was in place and functioning. The appropriately-sized RF cannula was inserted into the RF needle and motor stimulation was performed with no subjective or objective evidence of recruited muscle activity with stimulation up to 2.0 volts at a frequency of 2Hz. 1.5 mL of 2.0% PF lidocaine was injected after negative aspiration. After a 90s pause, lesioning was performed to 90 degrees centigrade for 90s ensuring lack of symptoms in the extremity throughout. Needle was rotated 180 degrees and lesioning repeated in a similar manner. Patient tolerated this well. No paresthesias were elicited. Needle was removed completely intact without difficulty. The same procedure was repeated for all intended levels/ structures on the ipsilateral side, right L4, L5 medial branch/dorsal ramus with identical methodology, modified to compensate for new location, with similar results and no evidence of complication. The same exact procedure was repeated for all remaining levels on the contralateral side, left L3, L4, L5 medial branches/dorsal ramus, modified as necessary to accommodate for the new target location with identical findings/results and no evidence of complication. Images were saved and documented in the patient chart. Patient's skin was cleansed and sterile bandage applied. The patient tolerated the procedure well. The patient was transported to the recovery area in stable condition where they were observed for an appropriate amount of time prior to discharge, without evidence of complication. The patient was instructed to avoid excessive activity for the next 48 hours, including climbing and frequent use of stairs. Showers only for 48 hours. They were instructed not to drive or operate heavy machinery for 24 hours. They are to monitor for severe headaches, fevers, chills, night sweats, erythema/swelling at the site or any other signs of infection, bleeding/bruising, bowel or bladder changes as well as new pain, weakness or numbness in the upper or lower extremi ty. Should they notice these changes, they are instructed to call our office immediately or report directly to the nearest Emergency Department if no answer or if after posted office hours. COMPLICATIONS: None COMMENTS: None Complications No immediate complications Condition Stable Disposition PACU [facility] Billing Surgery - Charge Forward: Surgery Billing
[2024-12-04 11:04] VITALS: BP 133/82; PULSE 89; RESP 16; TEMP 36.6; O2SAT 95
[2024-12-04] MEDS: LACTATED RINGERS 1,000 ML 30 ML IV CONT (11:20)
[2024-12-04] MEDS: BUPivacaine HCL 0.5% 10 ML AMP INFILTRATE (11:43)
[2024-12-04] MEDS: LIDOCAINE 2% PF LOCAL INJ 5 ML VIAL 10 ML INFILTRATE (11:44)
--- OUTSIDE RECORDS SUMMARY | 2024-12-04 11:58 | XMS_ITS | Clinical Summary ---
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 CHOICE PLUS Care Teams Endoscopic Technician Relationship Specialty Start Date End Date José Luis Kruger MD [address] [facility] [address] [place] [address] PCP - General 09/22/18
[2024-12-04 12:05] VITALS: BP 127/83; PULSE 90; RESP 16; O2SAT 98
[2024-12-04 12:15] VITALS: BP 124/86; PULSE 87; RESP 16; O2SAT 96
[2024-12-04 12:25] VITALS: BP 131/89; PULSE 81; RESP 16; O2SAT 98
== END 2024-12-04 12:42 | disposition home or self-care (01) ==
PROVIDERS: PCP Family Medicine; Visit Provider Anesthesiology Pain Medicine
PROC: (CPT 64635; principal; 2024-12-04 11:50)
DX: M47.817 Spondylosis without myelopathy or radiculopathy, lumbosacral region (principal); G89.29 Other chronic pain; M46.1 Sacroiliitis, not elsewhere classified
CPT/HCPCS: 64635 ×2; 64636 ×6; 99199

== ENCOUNTER 2024-12-21 15:56 | Outpatient (CLI) | payer OTHER, SELFPAY ==
--- OUTSIDE RECORDS SUMMARY | 2024-12-21 15:58 | XMS_ITS | Clinical Summary ---
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
[2024-12-21 16:57] LABS: Influenza A QL RT-PCR Negative (Negative); Influenza B QL RT-PCR Negative (Negative); RSV RNA, RT-PCR Negative (Negative); SARS-CoV-2 RNA PCR Negative (Negative)
== END 2024-12-21 15:57 | disposition home or self-care (01) ==
LOC: ANHLAB 15:57
PROVIDERS: PCP Family Medicine
DX: Z20.822 Contact with and (suspected) exposure to COVID-19 (principal); J06.9 Acute upper respiratory infection, unspecified
CPT/HCPCS: 87637

== ENCOUNTER 2025-02-25 09:54 | Outpatient (CLI) | payer OTHER, SELFPAY ==
--- NOTE | ~2025-02-25 | MR_ITS ---
EXAMINATION: MR lumbar spine wo con DATE: 02/25/2025 11:19 INDICATION: Radiculopathy, lumbosacral region. TECHNIQUE: Magnetic resonance imaging (MRI) of the lumbar spine was performed without intravenous contrast. COMPARISON: Lumbar spine MRI 06/27/2024 FINDINGS: There is 7 degrees dextrocurvature of lumbar spine. There is 3 mm anterolisthesis of L4 on L5. Vertebral body heights are normal. There is mildly decreased disc height at L3-L4, L4-L5, and L5-S1. The distal spinal cord signal intensity is normal. The conus medullaris is at T12-L1. The following disc levels are specifically discussed: L1-L2: The disc does not extend beyond the endplate margin. There is severe bilateral facet joint osteoarthritis. There is no neural foraminal stenosis. There is no central canal stenosis. L2-L3: There is a left foraminal extrusion. There is severe bilateral facet joint osteoarthritis. There is moderate left neural foraminal stenosis. There is no central canal stenosis. L3-L4: The disc is bulging and has an annular fissure. There is severe bilateral facet joint osteoarthritis. There is mild right and moderate left neural foraminal stenosis. There is mild central canal stenosis. L4-L5: The disc is bulging and has an annular fissure. 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 There is mild bilateral neural foraminal stenosis. There is mild central canal stenosis. L5-S1: The disc is bulging and has an annular fissure. There is severe bilateral facet joint osteoarthritis. There is mild bilateral neural foraminal stenosis. There is mild central canal stenosis. IMPRESSION: 1. Moderate lumbar spondylosis, stable from 06/27/2024. Reviewed, dictated and finalized at location E. [facility]
--- OUTSIDE RECORDS SUMMARY | 2025-02-25 09:58 | XMS_ITS | Clinical Summary ---
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
== END 2025-02-25 09:55 | disposition home or self-care (01) ==
PROVIDERS: PCP Family Medicine; Visit Provider Nurse Practitioner Adult Health
DX: M43.06 Spondylolysis, lumbar region (principal)
CPT/HCPCS: 72148